=== PATIENT | male | born 1965 | race Hispanic/Latino ===

== ENCOUNTER 2019-01-06 17:13 | Inpatient (IN) | payer MEDICAID, OTHER ==
[2019-01-06] MEDS ORDERED: ROCEPHIN 2,000 MG in NACL 0.9% 50 ML IV STA (17:26)
--- NOTE | 2019-01-06 17:27 | Emergency Department Report ---
ED General Adult HPI - General Chief complaint: Weakness Stated complaint: TORSTEN Time Seen by Provider: 01/06/19 17:17 Source: patient, family, EMS (verbal report received from EMS. EMS documentation not available at time of chart dictation ), RN notes reviewed, old records reviewed Mode of arrival: Stretcher Limitations: Physical Limitation - History of Present Illness Initial comments: This is a 53-year-old gentleman. I have evaluated this patient in the past. His past medical history includes upper GI bleed, variceal bleeding, hepatitis C, possible cirrhosis Also has a known history of alcohol abuse, admission to this hospital for sepsis and pneumonia As per verbal report from EMS, patient is an end-stage liver patient. He's had multiple recent hospitalizations and evaluations at [facility], as per EMS, and has been informed that he is in end-stage liver patient. However, patient is apparently not receptive to this diagnosis. He therefore presents to the ER today with complaint of shortness of breath, weakness, abdominal wall pain, cough, malaise and fatigue. Patient has difficulty describing exacerbating or or relieving factors. The patient is a poor historian at this time. His family indicates that they don't know his goals of care, although his mother believes that she is his current power of workers compensation attorney. -: Gradual Improves with: other Worsens with: other Associated Symptoms: shortness of breath - Related Data Previous Rx's Medication Instructions Recorded Last Taken Type levoFLOXacin [Levaquin TAB] 750 mg PO Q24HR #7 tablet 02/03/16 Unknown Rx Allergies Allergy/AdvReac Type Severity Reaction Status Date / Time No Known Allergies Allergy Verified 01/28/16 21:54 ED Review of Systems ROS: Stated complaint: TORSTEN Other details as noted in HPI Comment: Unobtainable due to pts medical conditions Constitutional: malaise, weakness ENT: congestion Respiratory: shortness of breath Cardiovascular: edema Gastrointestinal: abdominal pain Musculoskeletal: arthralgia, myalgia Skin: denies: lesions Neurological: weakness Psychiatric: anxiety ED Past Medical Hx - Past Medical History Hx Heart Attack/AMI: No Hx Congestive Heart Failure: No Hx Diabetes: No Hx Deep Vein Thrombosis: No Hx Pulmonary Embolism: No Hx Liver Disease: Yes (Hep C) Hx Arthritis: Yes Hx Seizures: No Hx Asthma: No Hx COPD: No Hx Tuberculosis: No - Surgical History Hx Pacemaker: No Hx Internal Defibrillator: No Additional Surgical History: Femoral artery "popped" and cauritize - Social History Smoking Status: Current Some Day Smoker - Medications Home Medications: Home Medications Medication Instructions Recorded Confirmed Last Taken Type levoFLOXacin [Levaquin TAB] 750 mg PO Q24HR #7 tablet 02/03/16 Unknown Rx ED Physical Exam - General Limitations: Physical Limitation General appearance: alert, anxious, in distress - Head Head exam: Present: atraumatic, normocephalic - Eye Eye exam: Present: normal appearance, EOMI. Absent: nystagmus - ENT ENT exam: Present: normal exam, normal orophraynx, mucous membranes moist, normal external ear exam - Neck Neck exam: Present: normal inspection, full ROM. Absent: tenderness, meningismus - Respiratory Respiratory exam: Present: respiratory distress, rhonchi, decreased breath sounds (decreased breath sounds in the right hemithorax) - Cardiovascular Cardiovascular Exam: Present: normal rhythm, tachycardia, normal heart sounds. Absent: systolic murmur, diastolic murmur, rubs, gallop - GI/Abdominal GI/Abdominal exam: Present: soft, distended, tenderness. Absent: guarding, pulsatile mass - Rectal Rectal exam: Present: deferred - Extremities Exam Extremities exam: Present: normal inspection, full ROM, pedal edema, other (2+ pulses noted in the bilateral upper, lower extremities. There is no long bone tenderness. Musculoskeletal compartments are soft. The pelvis is stable.) - Back Exam Back exam: Present: normal inspection. Absent: tenderness, CVA tenderness (R), CVA tenderness (L), paraspinal tenderness, vertebral tenderness - Neurological Exam Neurological exam: Present: alert (the patient is alert to name. The patient follows commands.), other (there is no facial droop. The tongue is midline. Extraocular movements are intact bilaterally. Patient speaking in full complete sentences. Shoulder shrug is intact bilaterally. Hearing is grossly intact bilaterally. Visual acuity intact to finger counting and color perception at a close distance. 5/5 strength 4 extremities. Sensation intact to light touch in 4 extremities.) - Psychiatric Psychiatric exam: Present: anxious - Skin Skin exam: Present: warm ED Course Vital Signs 01/06/19 17:31 Temperature 97.8 F Pulse Rate 131 H Respiratory 28 H Rate Blood Pressure 112/67 Blood Pressure 112/67 [Left] O2 Sat by Pulse 95 Oximetry - Reevaluation(s) Reevaluation #1: 01/06/19 19:13 Differential diagnosis, including but not limited to: End-stage liver disease, cirrhosis, coagulopathy, spontaneous bacterial peritonitis, pneumonia Assessment and plan: 53-year-old gentleman with coagulopathy, end-stage liver disease, cirrhosis, with systemic inflammatory response syndrome, manifested by tachycardia, leukopenia, and lactic acidosis. Overall prognosis is very poor. Attempted to engage patient, mother, in discussion about long-term prognosis and goals of care. The patient is refusing BiPAP at this time, but he is amenable to high flow therapy. At this time, he is a full code. He is also found to be leukopenic. We will start him on the sepsis pathway, initiate broad-spectrum antibiotic therapy, neutropenic precautions, and reverse coagulopathy. Case discussed with critical care physician, Dr. Mirtha Johnson, who also has recommended reversal agents for coagulopathy, and agrees with placement to the stepdown unit. Case presented to the hospital physician, Dr. Edward, who will accept the patient to the medical service. ED Medical Decision Making - Lab Data Result diagrams: 01/06/19 17:32 01/06/19 17:32 Vital Signs 01/06/19 17:31 Temperature 97.8 F Pulse Rate 131 H Respiratory 28 H Rate Blood Pressure 112/67 Blood Pressure 112/67 [Left] O2 Sat by Pulse 95 Oximetry Lab Results 01/06/19 01/06/19 01/06/19 Range/Units 17:32 17:32 17:32 WBC 1.1 L* (4.5-11.0) K/mm3 RBC 2.78 L (3.65-5.03) M/mm3 Hgb 11.2 L (11.8-15.2) gm/dl Hct 34.5 L (35.5-45.6) % MCV 124 H (84-94) fl MCH 40 H (28-32) pg MCHC 33 (32-34) % RDW 18.1 H (13.2-15.2) % Plt Count 77 L (140-440) K/mm3 PT 25.0 H (12.2-14.9) Sec. INR 2.32 H (0.87-1.13) APTT 38.6 H (24.2-36.6) Sec. Thrombin Time 20.7 H (15.1-19.6) Sec. Sodium 135 L (137-145) mmol/L Potassium 3.7 (3.6-5.0) mmol/L Chloride 99.7 (98-107) mmol/L Carbon Dioxide 14 L (22-30) mmol/L Anion Gap 25 mmol/L BUN 12 (9-20) mg/dL Creatinine 0.6 L (0.8-1.5) mg/dL Estimated GFR > 60 ml/min BUN/Creatinine Ratio 20 % Glucose 82 (75-100) mg/dL Lactic Acid (0.7-2.0) mmol/L Calcium 8.3 L (8.4-10.2) mg/dL Magnesium 1.40 L (1.7-2.3) mg/dL Total Bilirubin 4.80 H (0.1-1.2) mg/dL AST 44 H (5-40) units/L ALT 19 (7-56) units/L Alkaline Phosphatase 127 (35-129) units/L Total Creatine Kinase 50 L (55-170) units/L Troponin T < 0.010 (0.00-0.029) ng/mL NT-Pro-B Natriuret Pep 363.9 (0-900) pg/mL Total Protein 7.2 (6.3-8.2) g/dL Albumin 2.6 L (3.9-5) g/dL Albumin/Globulin Ratio 0.6 % Blood Type 01/06/19 01/06/19 Range/Units 17:32 17:32 WBC (4.5-11.0) K/mm3 RBC (3.65-5.03) M/mm3 Hgb (11.8-15.2) gm/dl Hct (35.5-45.6) % MCV (84-94) fl MCH (28-32) pg MCHC (32-34) % RDW (13.2-15.2) % Plt Count (140-440) K/mm3 PT (12.2-14.9) Sec. INR (0.87-1.13) APTT (24.2-36.6) Sec. Thrombin Time (15.1-19.6) Sec. Sodium (137-145) mmol/L Potassium (3.6-5.0) mmol/L Chloride (98-107) mmol/L Carbon Dioxide (22-30) mmol/L Anion Gap mmol/L BUN (9-20) mg/dL Creatinine (0.8-1.5) mg/dL Estimated GFR ml/min BUN/Creatinine Ratio % Glucose (75-100) mg/dL Lactic Acid 8.80 H* (0.7-2.0) mmol/L Calcium (8.4-10.2) mg/dL Magnesium (1.7-2.3) mg/dL Total Bilirubin (0.1-1.2) mg/dL AST (5-40) units/L ALT (7-56) units/L Alkaline Phosphatase (35-129) units/L Total Creatine Kinase (55-170) units/L Troponin T (0.00-0.029) ng/mL NT-Pro-B Natriuret Pep (0-900) pg/mL Total Protein (6.3-8.2) g/dL Albumin (3.9-5) g/dL Albumin/Globulin Ratio % Blood Type O POSITIVE - EKG Data -: EKG Interpreted by [facility] EKG shows normal: sinus rhythm Rate: normal - EKG Data 01/06/19 19:15 This is a sinus tachycardia, 132 bpm, normal axis, QTC prolonged, poor all with percussion, premature atrial contraction, motion artifact, the EKG is abnormal, the EKG is not consistent with ST elevation myocardial infarction. - Radiology Data Radiology results: report reviewed, image reviewed Findings [facility] [address] [place] [address] XRay Report Signed Patient: CASS ROGERS MR#: [id number] : 1965 Acct:[id number] Age/Sex: 53 / M ADM Date: 01/06/19 Loc: ED Attending Dr: Ordering Physician: LILLIAN IRVING MD Date of Service: 01/06/19 Procedure(s): XR chest 1V ap Accession Number(s): [id number] cc: LILLIAN IRVING MD Fluoro Time In Minutes: Chest single view INDICATION: Dyspnea IMPRESSION: Moderate right pleural effusion with patchy airspace consolidation t hroughout the right upper and right lower lung. The left lung is clear. Signer Name: Mino Jacques MD Signed: 01/06/2019 5:58 PM Workstation Name: [id number] Transcribed By: LAKSHMI Dictated By: Mino Jacques MD Electronically Authenticated By: Mino Jacques MD Signed Date/Time: 01/06/19 2952 Critical Care Time: Yes Critical care time in (mins) excluding proc time.: 60 Critical care attestation.: If time is entered above; I have spent that time in minutes in the direct care of this critically ill patient, excluding procedure time. ED Disposition Clinical Impression: End stage liver disease, Coagulopathy, Severe sepsis Pneumonia Qualifiers: Pneumonia type: due to unspecified organism Laterality: right Lung location: unspecified part of lung Qualified Code(s): J18.9 - Pneumonia, unspecified organism Hepatitis C Qualifiers: Viral hepatitis chronicity: unspecified Hepatic coma status: without hepatic coma Qualified Code(s): B19.20 - Unspecified viral hepatitis C without hepatic coma Disposition: OP ADMIT IP TO THIS HOSP Is pt being admited?: Yes Does the pt Need Aspirin: No Condition: Critical Instructions: Bacterial Pneumonia (ED) Referrals: PRIMARY CAREMD [Primary Care Provider] - 3-5 Days
[2019-01-06 17:57] LABS: Hematocrit 34.5 % (35.5-45.6); Hemoglobin 11.2 gm/dl (11.8-15.2); Mean Corpuscular HGB Conc 33 % (32-34); Red Blood Count 2.78 M/mm3 (3.65-5.03); Red Cell Distribution Width 18.1 % (13.2-15.2)
[2019-01-06] MEDS ORDERED: ROCEPHIN/NS 2 GM/100 ML 2 GM/100 ML BAG IV ONE (18:00)
--- NOTE | 2019-01-06 18:02 | XRay Report ---
Chest single view INDICATION: Dyspnea IMPRESSION: Moderate right pleural effusion with patchy airspace consolidation throughout the right u pper and right lower lung. The left lung is clear. Signer Name: Mino Jacques MD Signed: 01/06/2019 5:58 PM Workstation Name: [id number]
[2019-01-06 18:03] LABS: INR 2.32 (0.87-1.13); Partial Thromboplastin Time 38.6 Sec. (24.2-36.6); Thrombin Time 20.7 Sec. (15.1-19.6)
[2019-01-06 18:05] LABS: Mean Corpuscular Volume 124 fl (84-94)
[2019-01-06 18:06] LABS: Platelet Count 77 K/mm3 (140-440)
[2019-01-06 18:21] LABS: Alanine Aminotransferase 19 units/L (7-56); Albumin 2.6 g/dL (3.9-5); BUN/Creatinine Ratio 20; Blood Urea Nitrogen 12 mg/dL (9-20); Calcium 8.3 mg/dL (8.4-10.2); Hemolysis Index 21
[2019-01-06] MEDS ORDERED: NACL 0.9% 1000 ML IV ONE (18:47)
[2019-01-06] MEDS ORDERED: VITAMIN K (ADULT ONLY) 10 MG in NACL 0.9% 50 ML IV ONE (18:51)
[2019-01-06] MEDS ORDERED: NACL 0.9% 500 ML 500 ML IV ONE (18:51)
[2019-01-06 18:55] LABS: Band Neutrophils # (Manual) 0.1 K/mm3; Basophils % (Manual) 0 % (0.0-1.8); Monocytes % (Manual) 0 % (0.0-7.3); Total Cells Counted 50
[2019-01-06] MEDS ORDERED: SUBLIMAZE IV ONE (19:10)
[2019-01-06 19:15] LABS: Crenated RBC Few; Large Platelets 1+; Macrocytosis 2+; Platelet Estimate Appears Decreased
--- NOTE | 2019-01-06 19:52 | History and Physical Report ---
History of Present Illness Chief complaint: I feel weak History of present illness: 53 YO Male with HCV,Cirrhosis, ESLD complicated by Esophageal Varices, Nicotine Dependence presents to ED for evaluation. Pt states that he has experienced shortness of breath over the past 1 day with persistently worsening symptoms ov er the same time frame. Pt also acknowledges weakness and fatigue. EMS notified, and upon arrival the patient found to be in distress and transported to [facility]. Pt seen and evaluated in ED and found to have Neutropenia, Sepsis, Pneumonia, and Acute Hypoxemic Respiratory Failure. Pt declines respiratory support. Pt initiated on sepsis protocol and admitted to [facility]. Critical care team consulted in ED. Prior admission on 01/29/16 reviewed. Pt found to have poor prognosis. Advanced care planning conducted. Pt and family acknowledge understanding care plan. Past History Past Medical History: hepatitis, other (Cirrhosis, Esophageal varices) Past Surgical History: Other (Esophageal banding) Social history: single Family history: no significant family history (reviewed) Medications and Allergies Allergies Allergy/AdvReac Type Severity Reaction Status Date / Time No Known Allergies Allergy Verified 01/28/16 21:54 Home Medications Medication Instructions Recorded Confirmed Last Taken Type levoFLOXacin [Levaquin TAB] 750 mg PO Q24HR #7 tablet 02/03/16 Unknown Rx Review of Systems Constitutional: weakness, malaise, no weight loss, no weight gain, no fever, no chills Cardiovascular: no chest pain, no orthopnea, no palpitations, no rapid/irregular heart beat, no edema Respiratory: no cough, no cough with sputum, no excessive sputum, no hemoptysis Gastrointestinal: no abdominal pain, no nausea, no vomiting, no diarrhea, no constipation, no change in bowel habits Genitourinary Male: no hematuria, no discharge, no urinary frequency, no urinary hesitancy, no nocturia Rectal: no pain, no incontinence, no bleeding Musculoskeletal: no neck stiffness, no neck pain, no low back pain, no shooting leg pain, no redness of joints Integumentary: no rash, no sores, no wounds Neurological: weakness, no transient paralysis, no tingling, no seizures, no s yncope, no tremors Psychiatric: no anxiety, no memory loss, no change in sleep habits, no sleep disturbances, no insomnia, no hypersomnia Endocrine: no cold intolerance, no heat intolerance, no polyphagia, no excessive thirst, no polydipsia Hematologic/Lymphatic: no easy bruising, no easy bleeding, no lymphadenopathy, no lymphedema Allergic/Immunologic: no urticaria, no allergic rhinitis, no wheezing, no persistent infections, no anaphylaxis, no angioedema Exam - Constitutional Vitals: Temp Pulse Resp BP Pulse Ox 97.8 F 133 H 32 H 96/42 96 01/06/19 17:31 01/06/19 19:13 01/06/19 19:13 01/06/19 19:13 01/06/19 19:15 General appearance: Present: mild distress - EENT Eyes: Present: PERRL ENT: hearing intact, clear oral mucosa - Respiratory Respiratory effort: labored, accessory muscle use Respiratory: bilateral: diminished, rhonchi - Cardiovascular Rhythm: other (tachycardia) Heart Sounds: Present: S1 & S2. Absent: rub, click - Extremities Extremities: pulses symmetrical, No edema Peripheral Pulses: within normal limits - Abdominal General gastrointestinal: Present: soft, non-tender, non-distended, normal bowel sounds Male genitourinary: Present: normal - Integumentary Integumentary: Present: clear, warm, dry - Musculoskeletal Musculoskeletal: generalized weakness - Psychiatric Psychiatric: appropriate mood/affect, intact judgment & insight - Neurologic Neurologic: CNII-XII intact, moves all extremities Results - Labs CBC & Chem 7: 01/06/19 17:32 01/07/19 06:08 Labs: Abnormal lab results 01/06/19 01/06/19 01/06/19 Range/Units 17:32 17:32 17:32 WBC 1.1 L* (4.5-11.0) K/mm3 RBC 2.78 L (3.65-5.03) M/mm3 Hgb 11.2 L (11.8-15.2) gm/dl Hct 34.5 L (35.5-45.6) % MCV 124 H (84-94) fl MCH 40 H (28-32) pg RDW 18.1 H (13.2-15.2) % Plt Count 77 L (140-440) K/mm3 Seg Neuts % (Manual) 72.0 H (40.0-70.0) % Lymphocytes % (Manual) 12.0 L (13.4-35.0) % Seg Neutrophils # Man 0.8 L (1.8-7.7) K/mm3 Lymphocytes # (Manual) 0.1 L (1.2-5.4) K/mm3 PT 25.0 H (12.2-14.9) Sec. INR 2.32 H (0.87-1.13) APTT 38.6 H (24.2-36.6) Sec. Thrombin Time 20.7 H (15.1-19.6) Sec. Sodium 135 L (137-145) mmol/L Carbon Dioxide 14 L (22-30) mmol/L Creatinine 0.6 L (0.8-1.5) mg/dL Lactic Acid (0.7-2.0) mmol/L Calcium 8.3 L (8.4-10.2) mg/dL Magnesium 1.40 L (1.7-2.3) mg/dL Total Bilirubin 4.80 H (0.1-1.2) mg/dL AST 44 H (5-40) units/L Total Creatine Kinase 50 L (55-170) units/L Albumin 2.6 L (3.9-5) g/dL 01/06/19 Range/Units 17:32 WBC (4.5-11.0) K/mm3 RBC (3.65-5.03) M/mm3 Hgb (11.8-15.2) gm/dl Hct (35.5-45.6) % MCV (84-94) fl MCH (28-32) pg RDW (13.2-15.2) % Plt Count (140-440) K/mm3 Seg Neuts % (Manual) (40.0-70.0) % Lymphocytes % (Manual) (13.4-35.0) % Seg Neutrophils # Man (1.8-7.7) K/mm3 Lymphocytes # (Manual) (1.2-5.4) K/mm3 PT (12.2-14.9) Sec. INR (0.87-1.13) APTT (24.2-36.6) Sec. Thrombin Time (15.1-19.6) Sec. Sodium (137-145) mmol/L Carbon Dioxide (22-30) mmol/L Creatinine (0.8-1.5) mg/dL Lactic Acid 8.80 H* (0.7-2.0) mmol/L Calcium (8.4-10.2) mg/dL Magnesium (1.7-2.3) mg/dL Total Bilirubin (0.1-1.2) mg/dL AST (5-40) units/L Total Creatine Kinase (55-170) units/L Albumin (3.9-5) g/dL Assessment and Plan - Patient Problems (1) Sepsis Current Visit: No Status: Acute Qualifiers: Acute respiratory failure type: with hypoxia Plan to address problem: Sepsis protocol: Admit to IMCU, CBC, CMP, Supplemental oxygen, pulse oximetry, serial lactic acid, chest x ray, urinalysis, monitor uop q shift, Pt has poor prognosis. Pt and family counseled regarding prognosis. (2) Pneumonia Current Visit: Yes Status: Acute Qualifiers: Lung location: lower lobe of lung Plan to address problem: IV antiboitic therapy, Chest x ray, nebulizer therapy, CBC, CMP, Pulse oximetry, supportive care. (3) End stage liver disease Current Visit: Yes Status: Acute Plan to address problem: Poor prognosis, supportive care, pain control, avoid hepatotoxic agents. Pt and family counseled regarding prognosis and care plan. (4) Acute hypoxemic respiratory failure Current Visit: No Status: Acute Plan to address problem: Supplemental oxygen, nebulizer therapy, pulse oximetry, chest x ray. Pt declined invasive ventilation, as well as NIPPV. Pt and family counseled regarding risks of worsening health status and possible . Pt and family acknowledge understanding of risks. (5) Neutropenia Current Visit: Yes Status: Acute Qualifiers: Neutropenia type: unspecified Qualified Code(s): D70.9 - Neutropenia, unspecified Plan to address problem: Neutropenic precautions, Chest x ray, CBC, CMP, supportive care. (6) Acidosis Current Visit: Yes Status: Acute Plan to address problem: Etiology suspected to be multifactorial: Treat sepsis, serial lactic acid levels, supportive care. (7) DVT prophylaxis Current Visit: Yes Status: Acute Plan to address problem: SCD to BLE while in bed, hold anticoagulation secondary to ESLD and concomitant coagulopathy.
[2019-01-06] MEDS ORDERED: SODIUM CHLORIDE FLUSH SYRINGE 10 ML IV PRN (20:04)
[2019-01-06] MEDS ORDERED: MORPHINE IV PRN ×2 (20:13→20:43)
[2019-01-06] MEDS ORDERED: D50W (25GM) Syringe IV ONE ×2 (20:24→20:26)
[2019-01-06] MEDS ORDERED: ATIVAN ONE (20:49)
[2019-01-06] MEDS: ATIVAN IV PRN (20:52)
[2019-01-06] MEDS ORDERED: PROVENTIL IH ONE ×3 (21:09→21:57)
[2019-01-06] MEDS: SODIUM CHLORIDE FLUSH SYRINGE 10 ML IV SCH (21:50)
[2019-01-06] MEDS ORDERED: D5NS 1,000 ML IV SCH (23:45)
[2019-01-06] MEDS ORDERED: HumuLIN R 100 UNITS in NACL 0.9% 99 ML IV SCH (23:45)
[2019-01-07] MEDS ORDERED: D5W 1,000 ML IV ONE
[2019-01-07] MEDS ORDERED: D50W (25GM) Syringe IV ONE (00:07)
[2019-01-07] MEDS: D50W (25GM) Syringe IV PRN ×4 (00:15→04:44)
[2019-01-07 01:00] LABS: BUN/Creatinine Ratio 17; Blood Urea Nitrogen 15 mg/dL (9-20); Calcium 7.7 mg/dL (8.4-10.2); Hemolysis Index 71
[2019-01-07] MEDS ORDERED: LASIX IV ONE (01:25)
[2019-01-07] MEDS ORDERED: NACL 0.9% 1000 ML 1,000 ML IV ONE (01:26)
[2019-01-07] MEDS ORDERED: NACL 0.9% 1000 ML 1,000 ML ONE ×3 (01:34→12:37)
[2019-01-07] MEDS ORDERED: LASIX ONE (01:34)
[2019-01-07] MEDS ORDERED: PROVENTIL IH ONE ×4 (03:10→21:09)
[2019-01-07] MEDS ORDERED: D10W 1,000 ML IV SCH (04:00)
--- NOTE | 2019-01-07 06:59 | Event Note ---
Date: 01/07/19 Cross-cover Notified by nursing staff of patients labs with Acidosis. Sodium bicarb ordered. GI consult placed also.
[2019-01-07 07:03] LABS: BUN/Creatinine Ratio 14; Blood Urea Nitrogen 17 mg/dL (9-20); Calcium 7.6 mg/dL (8.4-10.2); Hemolysis Index 17
[2019-01-07] MEDS ORDERED: D10W IV SCH (07:30)
[2019-01-07] MEDS ORDERED: SODIUM BICARBONATE IV SCH (07:30)
[2019-01-07] MEDS ORDERED: NACL 0.9% 1000 ML 2,000 ML IV ONE (08:00)
[2019-01-07 08:48] LABS: BUN/Creatinine Ratio 15; Blood Urea Nitrogen 18 mg/dL (9-20); Calcium 7.8 mg/dL (8.4-10.2); Hemolysis Index 107
[2019-01-07] MEDS ORDERED: ATIVAN ONE (09:24)
[2019-01-07] MEDS ORDERED: ATIVAN IV ONE (09:30)
[2019-01-07] MEDS ORDERED: LEVAQUIN 750MG/150ML 750 MG/150 ML BAG IV SCH (10:00)
[2019-01-07] MEDS ORDERED: NACL 0.9% 500 ML 500 ML IV ONE (10:03)
[2019-01-07] MEDS ORDERED: KCL 10MEQ/100ML 10 MEQ/100 ML BAG IV ONE ×2 (10:09→12:27)
[2019-01-07] MEDS: KCL 10MEQ/100ML 10 MEQ/100 ML BAG IV SCH ×2 (10:30→13:10)
[2019-01-07 12:31] LABS: Calcium 7.6 mg/dL (8.4-10.2)
[2019-01-07] MEDS: SODIUM CHLORIDE FLUSH SYRINGE 10 ML IV SCH (13:09)
--- NOTE | 2019-01-07 13:41 | Cat Scan Report ---
CT ABDOMEN AND PELVIS WITH and without CONTRAST HISTORY: ischemic bowel COMPARISON: CT abdomen and pelvis report dated 08/16/2015 TECHNIQUE: Axial CT images were obtained through the abdomen and pelvis after 100 cc of Omnipaque 300 intravenously. Sagittal and coronal reformatted images. All CT scans at this location are performed using CT dose reduction for ALARA by means of automated exposure control. FINDINGS: CT ABDOMEN: Lung Bases: Heart size is normal. There is a large complex loculated pleural effusion at the right vicenta ng base. Compressive atelectasis is present throughout the inferior right lung. The left lung bases g enerally clear. Trace left pleural effusion is noted. Liver: The liver is shrunken and cirrhotic. No evidence for focal liver mass. The portal venous syste m and hepatic veins are patent. Biliary: No significant abnormality. Spleen: Mild splenomegaly measures 14.7 cm. No focal splenic lesion. Pancreas: No significant abnormality. Adrenals: No significant abnormality. Kidneys: A 5 mm calyceal stone is noted near the superior pole the right kidney. A 1 cm cyst is noted at the inferior pole of the left kidney. No evidence for hydronephrosis or perinephric fluid. Lymphatics: No lymphadenopathy. Vasculature: The aorta is normal caliber and widely patent. The celiac axis and SMA are unremarkable. The SANDRA is not confidently identified. There is moderate motion artifact on this exam. Bowel/Peritoneum: There are multiple small bowel loops and most of the colon which demonstrates moder ate circumferential thickening. There is no evidence for pneumatosis or free air. Small ascites is no airam. A debris level is noted within the pelvic ascites which could represent blood products. The appe ndix is not confidently identified. CT PELVIS: : The bladder is decompressed with a Welch catheter. No obvious abnormality. Osseous Structures: Moderate thoracolumbar spondylosis is identified. No evidence for acute fracture or suspicious bony lesion. Additional Findings: None IMPRESSION: There are multiple thickened small bowel loops and colon consistent with a nonspecific enteritis/coli tis. No pneumatosis or free air is identified at this time. Early ischemic bowel cannot be excluded. Cirrhosis and mild splenomegaly. Small ascites. Right renal stone, nonobstructing. Complex, loculated right pleural effusion. Trace left pleural effusion. Signer Name: Tyrone Crooks Jr, MD Signed: 01/07/2019 1:37 PM Workstation Name: [id number]
[2019-01-07 13:45] VITALS: BP 94/50
--- NOTE | 2019-01-07 13:53 | Gastroenterology Consultation ---
History of Present Illness - Reason for Consult Consult date: 01/07/19 cirrhosis Requesting physician: REYNA SANCHES - History of Present Illness Patient is a 53 y/o male who presented to ED yesterday with c/o shortness of breath, weakness, abdominal wall pain, cough, malaise and fatigue. Upon admission, he was found to have coagulopathy, sepsis, pneumonia, acute hypoxemic respiratory failure, neutropenia, and acidosis to which he was admitted and currently being treated (on antibiotics and neutropenic precautions). Patient is previously known to our service. He has a hx of cirrhosis/ESLD and HCV (s/p treatment; PCR 2016 negative) complicated by ascites and esophageal varices to which GI has been consulted. His last EGD was on 05/03/[address] Healy showed grade 2/3 esophageal varices (s/p banding 07/2017) and portal gastropathy, however patient has been lost to follow up since that time. This morning patient was resting on stretcher in ED in distress with tachypnea on high flow oxygen. Noted to be lethargic (given Ativan this am) and unable to provide history. History obtained via chart review (no family at bedside). He has a remote hx of ETOH abuse (unknown if recent use). Upon exam, abdomen firm and mottled. No active signs of GI bleeding. Past History Past Medical History: hepatitis (HCV-s/p treatment), other (Cirrhosis, Esophageal varices) Past Surgical History: Other (Esophageal banding) Social history: single Family history: no significant family history (reviewed) Medications and Allergies Allergies Allergy/AdvReac Type Severity Reaction Status Date / Time No Known Allergies Allergy Verified 01/28/16 21:54 Home Medications Medication Instructions Recorded Confirmed Last Taken Type levoFLOXacin [Levaquin TAB] 750 mg PO Q24HR #7 tablet 02/03/16 Unknown Rx Active Meds: Active Medications Dextrose (D50w (25gm) Syringe) 0 ml IV PRN PRN PRN Reason: Hypoglycemia Last Admin: 01/07/19 04:44 Dose: 10 ml Documented by: Levofloxacin/Dextrose (Levaquin 750mg/150ml) 750 mg in 150 mls @ 100 mls/hr IV Q24HR JULIAN; Protocol Last Admin: 01/07/19 13:28 Dose: 100 mls/hr Documented by: Sodium Bicarbonate 50 meq/ (Dextrose) 1,050 mls @ 75 mls/hr IV DIRECT JULIAN Last Admin: 01/07/19 08:40 Dose: 75 mls/hr Documented by: Lorazepam (Ativan) 1 mg IV Q4H PRN PRN Reason: Agitation Last Admin: 01/06/19 20:52 Dose: 1 mg Documented by: Morphine Sulfate (Morphine) 2 mg IV Q4H PRN PRN Reason: Pain, Moderate (4-6) Sodium Chloride (Sodium Chloride Flush Syringe 10 Ml) 10 ml IV BID [facility] Last Admin: 01/07/19 13:09 Dose: 10 ml Documented by: Sodium Chloride (Sodium Chloride Flush Syringe 10 Ml) 10 ml IV PRN PRN PRN Reason: LINE FLUSH medications reviewed/updated as required Review of Systems - Review of Systems ROS unobtainable: due to mental status Exam - Constitutional Vital Signs: Temp Pulse Resp BP Pulse Ox 98.1 F 122 H 22 94/50 100 01/07/19 07:31 01/07/19 13:44 01/07/19 13:44 01/07/19 13:44 01/07/19 13:44 General appearance: severe distress - Respiratory Respiratory effort: labored Respiratory: bilateral: diminished - Cardiovascular Rhythm: other (tachycardia) - Gastrointestinal General gastrointestinal: Present: distended (slightly), other (firm, mottled) - Integumentary Integumentary: Present: warm, dry - Neurologic Neurological: other (lethargic) - Labs CBC & Chem 7: 01/06/19 17:32 01/07/19 11:49 Lab Results: Laboratory Results - last 24 hr 01/06/19 01/06/19 01/06/19 17:32 17:32 17:32 WBC 1.1 L* RBC 2.78 L Hgb 11.2 L Hct 34.5 L MCV 124 H MCH 40 H MCHC 33 RDW 18.1 H Plt Count 77 L Add Manual Diff Complete Total Counted 50 Seg Neuts % (Manual) 72.0 H Band Neutrophils % 10.0 Lymphocytes % (Manual) 12.0 L Reactive Lymphs % (Man) 0 Monocytes % (Manual) 0 Eosinophils % (Manual) 2.0 Basophils % (Manual) 0 Metamyelocytes % 2.0 Myelocytes % 2.0 Promyelocytes % 0 Blast Cells % 0 Nucleated RBC % Not Reportable Seg Neutrophils # Man 0.8 L Band Neutrophils # 0.1 Lymphocytes # (Manual) 0.1 L Abs React Lymphs (Man) 0.0 Monocytes # (Manual) 0.0 Eosinophils # (Manual) 0.0 Basophils # (Manual) 0.0 Metamyelocytes # 0.0 Myelocytes # 0.0 Promyelocytes # 0.0 Blast Cells # 0.0 WBC Morphology Not Reportable Hypersegmented Neuts Not Reportable Hyposegmented Neuts Not Reportable Hypogranular Neuts Not Reportable Smudge Cells Not Reportable Toxic Granulation Not Reportable Toxic Vacuolation Not Reportable Dohle Bodies Not Reportable Pelger-Huet Anomaly Not Reportable Jabier Rods Not Reportable Platelet Estimate Appears decreased Clumped Platelets Not Reportable Plt Clumps, EDTA Not Reportable Large Platelets 1+ Giant Platelets Not Reportable Platelet Satelliting Not Reportable Plt Morphology Comment Not Reportable RBC Morphology Not Reportable Dimorphic RBCs Not Reportable Polychromasia Not Reportable Hypochromasia Not Reportable Poikilocytosis Not Reportable Anisocytosis Not Reportable Microcytosis Not Reportable Macrocytosis 2+ Spherocytes Not Reportable Pappenheimer Bodies Not Reportable Sickle Cells Not Reportable Target Cells Not Reportable Tear Drop Cells Not Reportable Ovalocytes Not Reportable Helmet Cells Not Reportable Fritz-Devola Bodies Not Reportable [place] Rings Not Reportable [place] Cells Not Reportable Bite Cells Not Reportable Crenated Cell Few Elliptocytes Not Reportable Acanthocytes (Spur) Not Reportable Rouleaux Not Reportable Hemoglobin C Crystals Not Reportable Schistocytes Not Reportable Malaria parasites Not Reportable Dharmesh Bodies Not Reportable Hem Pathologist Commnt No PT 25.0 H INR 2.32 H APTT 38.6 H Thrombin Time 20.7 H POC ABG pH POC ABG pO2 POC ABG HCO3 POC ABG Total CO2 POC ABG O2 Sat POC ABG Base Excess FiO2 Sodium 135 L Potassium 3.7 Chloride 99.7 Carbon Dioxide 14 L Anion Gap 25 BUN 12 Creatinine 0.6 L Estimated GFR > 60 BUN/Creatinine Ratio 20 Glucose 82 POC Glucose Lactic Acid Calcium 8.3 L Phosphorus Magnesium 1.40 L Total Bilirubin 4.80 H AST 44 H ALT 19 Alkaline Phosphatase 127 Ammonia Total Creatine Kinase 50 L Troponin T < 0.010 NT-Pro-B Natriuret Pep 363.9 Total Protein 7.2 Albumin 2.6 L Albumin/Globulin Ratio 0.6 Blood Type Antibody Screen 01/06/19 01/06/19 01/06/19 17:32 17:32 19:57 WBC RBC Hgb Hct MCV MCH MCHC RDW Plt Count Add Manual Diff Total Counted Seg Neuts % (Manual) Band Neutrophils % Lymphocytes % (Manual) Reactive Lymphs % (Man) Monocytes % (Manual) Eosinophils % (Manual) Basophils % (Manual) Metamyelocytes % Myelocytes % Promyelocytes % Blast Cells % Nucleated RBC % Seg Neutrophils # Man Band Neutrophils # Lymphocytes # (Manual) Abs React Lymphs (Man) Monocytes # (Manual) Eosinophils # (Manual) Basophils # (Manual) Metamyelocytes # Myelocytes # Promyelocytes # Blast Cells # WBC Morphology Hypersegmented Neuts Hyposegmented Neuts Hypogranular Neuts Smudge Cells Toxic Granulation Toxic Vacuolation Dohle Bodies Pelger-Huet Anomaly Jabier Rods Platelet Estimate Clumped Platelets Plt Clumps, EDTA Large Platelets Giant Platelets Platelet Satelliting Plt Morphology Comment RBC Morphology Dimorphic RBCs Polychromasia Hypochromasia Poikilocytosis Anisocytosis Microcytosis Macrocytosis Spherocytes Pappenheimer Bodies Sickle Cells Target Cells Tear Drop Cells Ovalocytes Helmet Cells Fritz-Devola Bodies [place] Rings [place] Cells Bite Cells Crenated Cell Elliptocytes Acanthocytes (Spur) Rouleaux Hemoglobin C Crystals Schistocytes Malaria parasites Dharmesh Bodies Hem Pathologist Commnt PT INR APTT Thrombin Time POC ABG pH POC ABG pO2 POC ABG HCO3 POC ABG Total CO2 POC ABG O2 Sat POC ABG Base Excess FiO2 Sodium Potassium Chloride Carbon Dioxide Anion Gap BUN Creatinine Estimated GFR BUN/Creatinine Ratio Glucose POC Glucose Lactic Acid 8.80 H* Calcium Phosphorus Magnesium Total Bilirubin AST ALT Alkaline Phosphatase Ammonia 73.0 H Total Creatine Kinase Troponin T NT-Pro-B Natriuret Pep Total Protein Albumin Albumin/Globulin Ratio Blood Type O POSITIVE Antibody Screen Negative 01/06/19 01/06/19 01/06/19 20:26 20:59 23:13 WBC RBC Hgb Hct MCV MCH MCHC RDW Plt Count Add Manual Diff Total Counted Seg Neuts % (Manual) Band Neutrophils % Lymphocytes % (Manual) Reactive Lymphs % (Man) Monocytes % (Manual) Eosinophils % (Manual) Basophils % (Manual) Metamyelocytes % Myelocytes % Promyelocytes % Blast Cells % Nucleated RBC % Seg Neutrophils # Man Band Neutrophils # Lymphocytes # (Manual) Abs React Lymphs (Man) Monocytes # (Manual) Eosinophils # (Manual) Basophils # (Manual) Metamyelocytes # Myelocytes # Promyelocytes # Blast Cells # WBC Morphology Hypersegmented Neuts Hyposegmented Neuts Hypogranular Neuts Smudge Cells Toxic Granulation Toxic Vacuolation Dohle Bodies Pelger-Huet Anomaly Jabier Rods Platelet Estimate Clumped Platelets Plt Clumps, EDTA Large Platelets Giant Platelets Platelet Satelliting Plt Morphology Comment RBC Morphology Dimorphic RBCs Polychromasia Hypochromasia Poikilocytosis Anisocytosis Microcytosis Macrocytosis Spherocytes Pappenheimer Bodies Sickle Cells Target Cells Tear Drop Cells Ovalocytes Helmet Cells Fritz-Devola Bodies [place] Rings Oli Cells Bite Cells Crenated Cell Elliptocytes Acanthocytes (Spur) Rouleaux Hemoglobin C Crystals Schistocytes Malaria parasites Dharmesh Bodies Hem Pathologist Commnt PT INR APTT Thrombin Time POC ABG pH POC ABG pO2 POC ABG HCO3 POC ABG Total CO2 POC ABG O2 Sat POC ABG Base Excess FiO2 Sodium Potassium Chloride Carbon Dioxide Anion Gap BUN Creatinine Estimated GFR BUN/Creatinine Ratio Glucose POC Glucose 42 L 135 H 60 L Lactic Acid Calcium Phosphorus Magnesium Total Bilirubin AST ALT Alkaline Phosphatase Ammonia Total Creatine Kinase Troponin T NT-Pro-B Natriuret Pep Total Protein Albumin Albumin/Globulin Ratio Blood Type Antibody Screen 01/07/19 01/07/19 01/07/19 00:12 00:12 00:12 WBC RBC Hgb Hct MCV MCH MCHC RDW Plt Count Add Manual Diff Total Counted Seg Neuts % (Manual) Band Neutrophils % Lymphocytes % (Manual) Reactive Lymphs % (Man) Monocytes % (Manual) Eosinophils % (Manual) Basophils % (Manual) Metamyelocytes % Myelocytes % Promyelocytes % Blast Cells % Nucleated RBC % Seg Neutrophils # Man Band Neutrophils # Lymphocytes # (Manual) Abs React Lymphs (Man) Monocytes # (Manual) Eosinophils # (Manual) Basophils # (Manual) Metamyelocytes # Myelocytes # Promyelocytes # Blast Cells # WBC Morphology Hypersegmented Neuts Hyposegmented Neuts Hypogranular Neuts Smudge Cells Toxic Granulation Toxic Vacuolation Dohle Bodies Pelger-Huet Anomaly Jabier Rods Platelet Estimate Clumped Platelets Plt Clumps, EDTA Large Platelets Giant Platelets Platelet Satelliting Plt Morphology Comment RBC Morphology Dimorphic RBCs Polychromasia Hypochromasia Poikilocytosis Anisocytosis Microcytosis Macrocytosis Spherocytes Pappenheimer Bodies Sickle Cells Target Cells Tear Drop Cells Ovalocytes Helmet Cells Fritz-Devola Bodies [place] Rings Oli Cells Bite Cells Crenated Cell Elliptocytes Acanthocytes (Spur) Rouleaux Hemoglobin C Crystals Schistocytes Malaria parasites Dharmesh Bodies Hem Pathologist Commnt PT INR APTT Thrombin Time POC ABG pH POC ABG pO2 POC ABG HCO3 POC ABG Total CO2 POC ABG O2 Sat POC ABG Base Excess FiO2 Sodium 136 L Potassium 3.7 Chloride 101.2 Carbon Dioxide 10 L Anion Gap 29 BUN 15 Creatinine 0.9 Estimated GFR > 60 BUN/Creatinine Ratio 17 Glucose 66 L POC Glucose Lactic Acid 12.60 H* Calcium 7.7 L Phosphorus 4.90 H Magnesium 1.30 L Total Bilirubin AST ALT Alkaline Phosphatase Ammonia Total Creatine Kinase Troponin T NT-Pro-B Natriuret Pep Total Protein Albumin Albumin/Globulin Ratio Blood Type Antibody Screen 01/07/19 01/07/19 01/07/19 01:42 03:03 04:02 WBC RBC Hgb Hct MCV MCH MCHC RDW Plt Count Add Manual Diff Total Counted Seg Neuts % (Manual) Band Neutrophils % Lymphocytes % (Manual) Reactive Lymphs % (Man) Monocytes % (Manual) Eosinophils % (Manual) Basophils % (Manual) Metamyelocytes % Myelocytes % Promyelocytes % Blast Cells % Nucleated RBC % Seg Neutrophils # Man Band Neutrophils # Lymphocytes # (Manual) Abs React Lymphs (Man) Monocytes # (Manual) Eosinophils # (Manual) Basophils # (Manual) Metamyelocytes # Myelocytes # Promyelocytes # Blast Cells # WBC Morphology Hypersegmented Neuts Hyposegmented Neuts Hypogranular Neuts Smudge Cells Toxic Granulation Toxic Vacuolation Dohle Bodies Pelger-Huet Anomaly Jabier Rods Platelet Estimate Clumped Platelets Plt Clumps, EDTA Large Platelets Giant Platelets Platelet Satelliting Plt Morphology Comment RBC Morphology Dimorphic RBCs Polychromasia Hypochromasia Poikilocytosis Anisocytosis Microcytosis Macrocytosis Spherocytes Pappenheimer Bodies Sickle Cells Target Cells Tear Drop Cells Ovalocytes Helmet Cells Fritz-Devola Bodies [place] Rings Oli Cells Bite Cells Crenated Cell Elliptocytes Acanthocytes (Spur) Rouleaux Hemoglobin C Crystals Schistocytes Malaria parasites Dharmesh Bodies Hem Pathologist Commnt PT INR APTT Thrombin Time POC ABG pH POC ABG pO2 POC ABG HCO3 POC ABG Total CO2 POC ABG O2 Sat POC ABG Base Excess FiO2 Sodium Potassium Chloride Carbon Dioxide Anion Gap BUN Creatinine Estimated GFR BUN/Creatinine Ratio Glucose POC Glucose 65 L 65 L 95 Lactic Acid Calcium Phosphorus Magnesium Total Bilirubin AST ALT Alkaline Phosphatase Ammonia Total Creatine Kinase Troponin T NT-Pro-B Natriuret Pep Total Protein Albumin Albumin/Globulin Ratio Blood Type Antibody Screen 01/07/19 01/07/19 01/07/19 04:50 06:08 06:08 WBC RBC Hgb Hct MCV MCH MCHC RDW Plt Count Add Manual Diff Total Counted Seg Neuts % (Manual) Band Neutrophils % Lymphocytes % (Manual) Reactive Lymphs % (Man) Monocytes % (Manual) Eosinophils % (Manual) Basophils % (Manual) Metamyelocytes % Myelocytes % Promyelocytes % Blast Cells % Nucleated RBC % Seg Neutrophils # Man Band Neutrophils # Lymphocytes # (Manual) Abs React Lymphs (Man) Monocytes # (Manual) Eosinophils # (Manual) Basophils # (Manual) Metamyelocytes # Myelocytes # Promyelocytes # Blast Cells # WBC Morphology Hypersegmented Neuts Hyposegmented Neuts Hypogranular Neuts Smudge Cells Toxic Granulation Toxic Vacuolation Dohle Bodies Pelger-Huet Anomaly Jabier Rods Platelet Estimate Clumped Platelets Plt Clumps, EDTA Large Platelets Giant Platelets Platelet Satelliting Plt Morphology Comment RBC Morphology Dimorphic RBCs Polychromasia Hypochromasia Poikilocytosis Anisocytosis Microcytosis Macrocytosis Spherocytes Pappenheimer Bodies Sickle Cells Target Cells Tear Drop Cells Ovalocytes Helmet Cells Fritz-Devola Bodies [place] Rings Oli Cells Bite Cells Crenated Cell Elliptocytes Acanthocytes (Spur) Rouleaux Hemoglobin C Crystals Schistocytes Malaria parasites Dharmesh Bodies Hem Pathologist Commnt PT INR APTT Thrombin Time POC ABG pH POC ABG pO2 POC ABG HCO3 POC ABG Total CO2 POC ABG O2 Sat POC ABG Base Excess FiO2 Sodium 138 Potassium 3.4 L Chloride 104.2 Carbon Dioxide 11 L Anion Gap 26 BUN 17 Creatinine 1.2 Estimated GFR > 60 BUN/Creatinine Ratio 14 Glucose 99 POC Glucose 75 Lactic Acid 14.40 H* Calcium 7.6 L Phosphorus Magnesium Total Bilirubin AST ALT Alkaline Phosphatase Ammonia Total Creatine Kinase Troponin T NT-Pro-B Natriuret Pep Total Protein Albumin Albumin/Globulin Ratio Blood Type Antibody Screen 01/07/19 01/07/19 01/07/19 06:16 06:56 08:16 WBC RBC Hgb Hct MCV MCH MCHC RDW Plt Count Add Manual Diff Total Counted Seg Neuts % (Manual) Band Neutrophils % Lymphocytes % (Manual) Reactive Lymphs % (Man) Monocytes % (Manual) Eosinophils % (Manual) Basophils % (Manual) Metamyelocytes % Myelocytes % Promyelocytes % Blast Cells % Nucleated RBC % Seg Neutrophils # Man Band Neutrophils # Lymphocytes # (Manual) Abs React Lymphs (Man) Monocytes # (Manual) Eosinophils # (Manual) Basophils # (Manual) Metamyelocytes # Myelocytes # Promyelocytes # Blast Cells # WBC Morphology Hypersegmented Neuts Hyposegmented Neuts Hypogranular Neuts Smudge Cells Toxic Granulation Toxic Vacuolation Dohle Bodies Pelger-Huet Anomaly Jabier Rods Platelet Estimate Clumped Platelets Plt Clumps, EDTA Large Platelets Giant Platelets Platelet Satelliting Plt Morphology Comment RBC Morphology Dimorphic RBCs Polychromasia Hypochromasia Poikilocytosis Anisocytosis Microcytosis Macrocytosis Spherocytes Pappenheimer Bodies Sickle Cells Target Cells Tear Drop Cells Ovalocytes Helmet Cells Fritz-Devola Bodies [place] Rings Oli Cells Bite Cells Crenated Cell Elliptocytes Acanthocytes (Spur) Rouleaux Hemoglobin C Crystals Schistocytes Malaria parasites Dharmesh Bodies Hem Pathologist Commnt PT INR APTT Thrombin Time POC ABG pH 7.109 L POC ABG pO2 71 L POC ABG HCO3 8.0 POC ABG Total CO2 9 POC ABG O2 Sat 88 POC ABG Base Excess -21 FiO2 60 Sodium 137 Potassium 4.0 Chloride 102.2 Carbon Dioxide 10 L Anion Gap 29 BUN 18 Creatinine 1.2 Estimated GFR > 60 BUN/Creatinine Ratio 15 Glucose 94 POC Glucose 108 H Lactic Acid Calcium 7.8 L Phosphorus Magnesium Total Bilirubin AST ALT Alkaline Phosphatase Ammonia Total Creatine Kinase Troponin T NT-Pro-B Natriuret Pep Total Protein Albumin Albumin/Globulin Ratio Blood Type Antibody Screen 01/07/19 01/07/19 01/07/19 08:16 08:28 09:58 WBC RBC Hgb Hct MCV MCH MCHC RDW Plt Count Add Manual Diff Total Counted Seg Neuts % (Manual) Band Neutrophils % Lymphocytes % (Manual) Reactive Lymphs % (Man) Monocytes % (Manual) Eosinophils % (Manual) Basophils % (Manual) Metamyelocytes % Myelocytes % Promyelocytes % Blast Cells % Nucleated RBC % Seg Neutrophils # Man Band Neutrophils # Lymphocytes # (Manual) Abs React Lymphs (Man) Monocytes # (Manual) Eosinophils # (Manual) Basophils # (Manual) Metamyelocytes # Myelocytes # Promyelocytes # Blast Cells # WBC Morphology Hypersegmented Neuts Hyposegmented Neuts Hypogranular Neuts Smudge Cells Toxic Granulation Toxic Vacuolation Dohle Bodies Pelger-Huet Anomaly Jabier Rods Platelet Estimate Clumped Platelets Plt Clumps, EDTA Large Platelets Giant Platelets Platelet Satelliting Plt Morphology Comment RBC Morphology Dimorphic RBCs Polychromasia Hypochromasia Poikilocytosis Anisocytosis Microcytosis Macrocytosis Spherocytes Pappenheimer Bodies Sickle Cells Target Cells Tear Drop Cells Ovalocytes Helmet Cells Fritz-Devola Bodies [place] Rings [place] Cells Bite Cells Crenated Cell Elliptocytes Acanthocytes (Spur) Rouleaux Hemoglobin C Crystals Schistocytes Malaria parasites Dharmesh Bodies Hem Pathologist Commnt PT INR APTT Thrombin Time POC ABG pH POC ABG pO2 POC ABG HCO3 POC ABG Total CO2 POC ABG O2 Sat POC ABG Base Excess FiO2 Sodium Potassium Chloride Carbon Dioxide Anion Gap BUN Creatinine Estimated GFR BUN/Creatinine Ratio Glucose POC Glucose 101 Lactic Acid 14.60 H* 17.00 H* Calcium Phosphorus Magnesium Total Bilirubin AST ALT Alkaline Phosphatase Ammonia Total Creatine Kinase Troponin T NT-Pro-B Natriuret Pep Total Protein Albumin Albumin/Globulin Ratio Blood Type Antibody Screen 01/07/19 01/07/19 01/07/19 10:46 11:12 11:49 WBC RBC Hgb Hct MCV MCH MCHC RDW Plt Count Add Manual Diff Total Counted Seg Neuts % (Manual) Band Neutrophils % Lymphocytes % (Manual) Reactive Lymphs % (Man) Monocytes % (Manual) Eosinophils % (Manual) Basophils % (Manual) Metamyelocytes % Myelocytes % Promyelocytes % Blast Cells % Nucleated RBC % Seg Neutrophils # Man Band Neutrophils # Lymphocytes # (Manual) Abs React Lymphs (Man) Monocytes # (Manual) Eosinophils # (Manual) Basophils # (Manual) Metamyelocytes # Myelocytes # Promyelocytes # Blast Cells # WBC Morphology Hypersegmented Neuts Hyposegmented Neuts Hypogranular Neuts Smudge Cells Toxic Granulation Toxic Vacuolation Dohle Bodies Pelger-Huet Anomaly Jabier Rods Platelet Estimate Clumped Platelets Plt Clumps, EDTA Large Platelets Giant Platelets Platelet Satelliting Plt Morphology Comment RBC Morphology Dimorphic RBCs Polychromasia Hypochromasia Poikilocytosis Anisocytosis Microcytosis Macrocytosis Spherocytes Pappenheimer Bodies Sickle Cells Target Cells Tear Drop Cells Ovalocytes Helmet Cells Fritz-Devola Bodies [place] Rings Oli Cells Bite Cells Crenated Cell Elliptocytes Acanthocytes (Spur) Rouleaux Hemoglobin C Crystals Schistocytes Malaria parasites Dharmesh Bodies Hem Pathologist Commnt PT INR APTT Thrombin Time POC ABG pH POC ABG pO2 POC ABG HCO3 POC ABG Total CO2 POC ABG O2 Sat POC ABG Base Excess FiO2 Sodium 139 Potassium 3.6 Chloride 102.5 Carbon Dioxide 7 L* Anion Gap 32 BUN 20 Creatinine 1.6 H Estimated GFR 45 BUN/Creatinine Ratio 13 Glucose 124 H POC Glucose 45 L 148 H Lactic Acid Calcium 7.6 L Phosphorus Magnesium Total Bilirubin AST ALT Alkaline Phosphatase Ammonia Total Creatine Kinase Troponin T NT-Pro-B Natriuret Pep Total Protein Albumin Albumin/Globulin Ratio Blood Type Antibody Screen 01/07/19 11:49 WBC RBC Hgb Hct MCV MCH MCHC RDW Plt Count Add Manual Diff Total Counted Seg Neuts % (Manual) Band Neutrophils % Lymphocytes % (Manual) Reactive Lymphs % (Man) Monocytes % (Manual) Eosinophils % (Manual) Basophils % (Manual) Metamyelocytes % Myelocytes % Promyelocytes % Blast Cells % Nucleated RBC % Seg Neutrophils # Man Band Neutrophils # Lymphocytes # (Manual) Abs React Lymphs (Man) Monocytes # (Manual) Eosinophils # (Manual) Basophils # (Manual) Metamyelocytes # Myelocytes # Promyelocytes # Blast Cells # WBC Morphology Hypersegmented Neuts Hyposegmented Neuts Hypogranular Neuts Smudge Cells Toxic Granulation Toxic Vacuolation Dohle Bodies Pelger-Huet Anomaly Jabier Rods Platelet Estimate Clumped Platelets Plt Clumps, EDTA Large Platelets Giant Platelets Platelet Satelliting Plt Morphology Comment RBC Morphology Dimorphic RBCs Polychromasia Hypochromasia Poikilocytosis Anisocytosis Microcytosis Macrocytosis Spherocytes Pappenheimer Bodies Sickle Cells Target Cells Tear Drop Cells Ovalocytes Helmet Cells Fritz-Devola Bodies [place] Rings [place] Cells Bite Cells Crenated Cell Elliptocytes Acanthocytes (Spur) Rouleaux Hemoglobin C Crystals Schistocytes Malaria parasites Dharmesh Bodies Hem Pathologist Commnt PT INR APTT Thrombin Time POC ABG pH POC ABG pO2 POC ABG HCO3 POC ABG Total CO2 POC ABG O2 Sat POC ABG Base Excess FiO2 Sodium Potassium Chloride Carbon Dioxide Anion Gap BUN Creatinine Estimated GFR BUN/Creatinine Ratio Glucose POC Glucose Lactic Acid 15.40 H* Calcium Phosphorus Magnesium Total Bilirubin AST ALT Alkaline Phosphatase Ammonia Total Creatine Kinase Troponin T NT-Pro-B Natriuret Pep Total Protein Albumin Albumin/Globulin Ratio Blood Type Antibody Screen Assessment and Plan 1.cirrhosis/ESLD 2.sepsis 3.pneumonia 4.acute hyoxemic respiratory failure (pleural effusion on chest x-ray; thoracentesis pending once INR corrected) 5.neutropenia 6.acidosis -afebrile -WBC 1.1 -H/H 11.2/34.5-no active signs of bleeding -plt 77, INR 2.32 -LFTs-T.joe 4.80, AST 44, ALT 19, alk phos 127 -lactic acid 15.40-trending up -patient with hx of cirrhosis 2/2 hepatitis C (s/p treatement) and ETOH complicated by ascites and varices -currently patient is in respiratory distress on high flow oxygen pending Bipap with noted tachypnea and tachycardia. Upon exam, abdomen only slightly distended but noted to be firm and mottled. -exam findings discussed with hospitalist (Dr. Sanches) with abd CT ordered and surgical consult placed given concern for ischemic bowel -Keep NPO for now -avoid hepatotoxic agents -continue to trend labs and conservative management of cirrhosis -further recommendations to follow pending above results
[2019-01-07] MEDS ORDERED: LEVAQUIN 750MG/150ML 750 MG/150 ML BAG IV ONE (14:06)
[2019-01-07] MEDS ORDERED: NACL 0.9% 500 ML 500 ML ONE (14:06)
[2019-01-07] MEDS: ATIVAN IV PRN (14:12)
[2019-01-07] MEDS ORDERED: LEVOPHED DRIP 4 MG/NS 250 ML 4 MG/250 ML BAG IV ONE (14:14)
[2019-01-07] MEDS ORDERED: LEVOPHED DRIP 4 MG/NS 250 ML 4 MG/250 ML BAG IV SCH (14:30)
--- NOTE | 2019-01-07 15:39 | Progress Note ---
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 Pt states that he has experienced shortness of breath over the past 1 day with persistently worsening symptoms over the same time frame. Pt also acknowledges weakness and fatigue. EMS notified, and upon arrival the patient found to be in distress and transported to [facility]. Pt seen and evaluated in ED and found to have Neutropenia, Sepsis, Pneumonia, and Acute Hypoxemic Respiratory Failure. Pt declines respiratory support. Pt initiated on sepsis protocol and admitted to IM. Critical care team consulted in ED. Prior admission on 01/29/16 reviewed. Pt found to have poor prognosis. Advanced care planning conducted. Pt and family acknowledge understanding care plan. Septic shock Severe Sepsis Hepatic failure/ESLD Hepatic Encephalopathy SBP presumed Possible underlying Pneumonia Nitropenia Severe Metabolic acidosis Acute Respiratory failure multiorgan failure Coagulopathy inr >2 YANI on CKD Right sided pleural effusion Ascites ETOH induced liver failure Thrombocytopenia PLAN * Continue supportive care * Upgrade to ICU status, Consult Pulmonary * Consult ID secondary to suspicion for SBP * Consult Surgery, for potential ischemic bowel * Consult GI * Start on Bicarb Drip * Aggressive fluid resuciation * Give vitamin K and FFP for coagulopathy reversal * Continue Empiric Antibiotics * dvt/gi PROPHY The high probability of a clinically significant, sudden or life threatening d eterioration of the [GI, Pulmonary] system(s) required my full and direct attention, intervention and personal management. The aggregate critical care time was [35] minutes. This time is in addition to time spent performing reported procedures but includes the following: [x] Data Review and interpretation [x] Patient assessment and monitoring of vital signs [x] Documentation [x] Medication orders and management History Interval history: Patient seen and examined, altered Sensorium, On BIPAP, not following any commands, Per nursing staff patient moans and groans and was complaining earlier of inability to breath Hospitalist Physical - Physical exam Narrative exam: Constitutional: Disoriented, with biPAP on. Not following any commands, moderate distress Head, Eyes, Ears, Nose: Normocephalic, atraumatic. External ears, nose normal, non icterus, PERRLA Neck: Supple, no meningeal signs Cardiovascular: S1, S2, tachy, Respiratory: good air entry with Bipap, clear to auscultation bilaterally GI: Soft, mildly tender; Distended, bowel sounds normal. No peritoneal signs. Musculoskeletal: No pedal edema, no cyanosis or claudication. Skin: No rash or abscess Hem/Lymphatic: No palpable cervical or supraclavicular nodes. No lymphangitis Psych: Disoriented Neurological: Awake, disoriented, spontaneously moving all limbs. - Constitutional Vitals: Temp Pulse Resp BP Pulse Ox 98.1 F 122 H 22 94/50 100 01/07/19 07:31 01/07/19 13:44 01/07/19 13:44 01/07/19 13:44 01/07/19 13:44 General appearance: Present: mild distress Results - Labs CBC & Chem 7: 01/06/19 17:32 01/07/19 15:10 Labs: Laboratory Last Values WBC 1.1 K/mm3 (4.5-11.0) L* 01/06/19 17:32 RBC 2.78 M/mm3 (3.65-5.03) L 01/06/19 17:32 Hgb 11.2 gm/dl (11.8-15.2) L 01/06/19 17:32 Hct 34.5 % (35.5-45.6) L 01/06/19 17:32 MCV 124 fl (84-94) H 01/06/19 17:32 MCH 40 pg (28-32) H 01/06/19 17:32 MCHC 33 % (32-34) 01/06/19 17:32 RDW 18.1 % (13.2-15.2) H 01/06/19 17:32 Plt Count 77 K/mm3 (140-440) L 01/06/19 17:32 Add Manual Diff Complete 01/06/19 17:32 Total Counted 50 01/06/19 17:32 Seg Neuts % (Manual) 72.0 % (40.0-70.0) H 01/06/19 17:32 10.0 % 01/06/19 17:32 12.0 % (13.4-35.0) L 01/06/19 17:32 Reactive Lymphs % (Man) 0 % 01/06/19 17:32 0 % (0.0-7.3) 01/06/19 17:32 2.0 % (0.0-4.3) 01/06/19 17:32 0 % (0.0-1.8) 01/06/19 17:32 2.0 % 01/06/19 17:32 2.0 % 01/06/19 17:32 0 % 01/06/19 17:32 0 % 01/06/19 17:32 Nucleated RBC % Not Reportable 01/06/19 17:32 Seg Neutrophils # Man 0.8 K/mm3 (1.8-7.7) L 01/06/19 17:32 Band Neutrophils # 0.1 K/mm3 01/06/19 17:32 0.1 K/mm3 (1.2-5.4) L 01/06/19 17:32 Abs React Lymphs (Man) 0.0 K/mm3 01/06/19 17:32 0.0 K/mm3 (0.0-0.8) 01/06/19 17:32 0.0 K/mm3 (0.0-0.4) 01/06/19 17:32 0.0 K/mm3 (0.0-0.1) 01/06/19 17:32 0.0 K/mm3 01/06/19 17:32 0.0 K/mm3 01/06/19 17:32 0.0 K/mm3 01/06/19 17:32 Blast Cells # 0.0 K/mm3 01/06/19 17:32 WBC Morphology Not Reportable 01/06/19 17:32 Hypersegmented Neuts Not Reportable 01/06/19 17:32 Hyposegmented Neuts Not Reportable 01/06/19 17:32 Hypogranular Neuts Not Reportable 01/06/19 17:32 Not Reportable 01/06/19 17:32 Not Reportable 01/06/19 17:32 Not Reportable 01/06/19 17:32 Not Reportable 01/06/19 17:32 Not Reportable 01/06/19 17:32 Not Reportable 01/06/19 17:32 Appears decreased 01/06/19 17:32 Not Reportable 01/06/19 17:32 Plt Clumps, EDTA Not Reportable 01/06/19 17:32 1+ 01/06/19 17:32 Not Reportable 01/06/19 17:32 Not Reportable 01/06/19 17:32 Plt Morphology Comment Not Reportable 01/06/19 17:32 RBC Morphology Not Reportable 01/06/19 17:32 Dimorphic RBCs Not Reportable 01/06/19 17:32 Not Reportable 01/06/19 17:32 Not Reportable 01/06/19 17:32 Not Reportable 01/06/19 17:32 Not Reportable 01/06/19 17:32 Not Reportable 01/06/19 17:32 2+ 01/06/19 17:32 Not Reportable 01/06/19 17:32 Not Reportable 01/06/19 17:32 Not Reportable 01/06/19 17:32 Not Reportable 01/06/19 17:32 Not Reportable 01/06/19 17:32 Not Reportable 01/06/19 17:32 Not Reportable 01/06/19 17:32 Not Reportable 01/06/19 17:32 Not Reportable 01/06/19 17:32 Not Reportable 01/06/19 17:32 Not Reportable 01/06/19 17:32 Few 01/06/19 17:32 Not Reportable 01/06/19 17:32 Acanthocytes (Spur) Not Reportable 01/06/19 17:32 Rouleaux Not Reportable 01/06/19 17:32 Not Reportable 01/06/19 17:32 Not Reportable 01/06/19 17:32 Not Reportable 01/06/19 17:32 Not Reportable 01/06/19 17:32 Hem Pathologist Commnt No 01/06/19 17:32 PT 25.0 Sec. (12.2-14.9) H 01/06/19 17:32 INR 2.32 (0.87-1.13) H 01/06/19 17:32 APTT 38.6 Sec. (24.2-36.6) H 01/06/19 17:32 20.7 Sec. (15.1-19.6) H 01/06/19 17:32 POC ABG pH 7.024 (7.35-7.45) L 01/07/19 15:33 POC ABG pCO2 30.8 (35-45) L 01/07/19 15:33 POC ABG pO2 109 (80-105) H 01/07/19 15:33 POC ABG HCO3 8.0 (22-26 mml/L) 01/07/19 15:33 POC ABG Total CO2 9 (23-27mmol/L) 01/07/19 15:33 POC ABG O2 Sat 95 01/07/19 15:33 POC ABG Base Excess -23 ((-2) - (+3)mmol/L) 01/07/19 15:33 70 % 01/07/19 15:33 Sodium 139 mmol/L (137-145) 01/07/19 11:49 Potassium 3.6 mmol/L (3.6-5.0) 01/07/19 11:49 Chloride 102.5 mmol/L (98-107) 01/07/19 11:49 Carbon Dioxide 7 mmol/L (22-30) L* 01/07/19 11:49 32 mmol/L 01/07/19 11:49 BUN 20 mg/dL (9-20) 01/07/19 11:49 1.6 mg/dL (0.8-1.5) H 01/07/19 11:49 Estimated GFR 45 ml/min 01/07/19 11:49 13 % 01/07/19 11:49 Glucose 124 mg/dL (75-100) H 01/07/19 11:49 POC Glucose 148 (70-105) H 01/07/19 11:12 Lactic Acid 15.40 mmol/L (0.7-2.0) H* 01/07/19 11:49 Calcium 7.6 mg/dL (8.4-10.2) L 01/07/19 11:49 Phosphorus 4.90 mg/dL (2.5-4.5) H 01/07/19 00:12 Magnesium 1.30 mg/dL (1.7-2.3) L 01/07/19 00:12 4.80 mg/dL (0.1-1.2) H 01/06/19 17:32 AST 44 units/L (5-40) H 01/06/19 17:32 ALT 19 units/L (7-56) 01/06/19 17:32 127 units/L (35-129) 01/06/19 17:32 73.0 umol/L (25-60) H 01/06/19 19:57 50 units/L (55-170) L 01/06/19 17:32 < 0.010 ng/mL (0.00-0.029) 01/06/19 17:32 NT-Pro-B Natriuret Pep 363.9 pg/mL (0-900) 01/06/19 17:32 7.2 g/dL (6.3-8.2) 01/06/19 17:32 2.6 g/dL (3.9-5) L 01/06/19 17:32 0.6 % 01/06/19 17:32 Blood Type O POSITIVE 01/06/19 17:32 Antibody Screen Negative 01/06/19 17:32 Active Medications - Current Medications Current Medications: Generic Name Dose Route Start Last Admin Trade Name Freq PRN Reason Stop Dose Admin Dextrose 0 ml 01/06/19 23:25 01/07/19 04:44 D50w (25gm) Syringe IV 10 ml PRN PRN Administration Hypoglycemia Sodium Bicarbonate 50 meq/ 1,050 mls @ 75 mls/hr 01/07/19 07:30 01/07/19 08:40 Dextrose IV 75 mls/hr DIRECT JULIAN Administration Norepinephrine 4 mg in 250 mls @ 7.5 mls/hr 01/07/19 14:30 01/07/19 15:23 Levophed Drip 4 Mg/Ns 250 Ml IV 6 mcg/min TITR JULIAN 22.5 mls/hr Titration Protocol 2 MCG/MIN Ceftriaxone Sodium 2 gm in 100 mls @ 200 mls/hr 01/07/19 22:00 Rocephin/Ns 2 Gm/100 Ml IV Q12HR JULIAN Protocol Lorazepam 1 mg 01/06/19 20:43 01/07/19 14:12 Ativan IV 1 mg Q4H PRN Administration Agitation Morphine Sulfate 2 mg 01/06/19 20:43 Morphine IV Q4H PRN Pain, Moderate (4-6) Sodium Chloride 10 ml 01/06/19 22:00 01/07/19 13:09 Sodium Chloride Flush Syringe 10 Ml IV 10 ml BID JULIAN Administration Sodium Chloride 10 ml 01/06/19 20:04 Sodium Chloride Flush Syringe 10 Ml IV PRN PRN LINE FLUSH Nutrition/Malnutrition Assess - Dietary Evaluation Nutrition/Malnutrition Findings: Nutrition Notes Start: 01/07/19 13:52 Freq: Status: Active Protocol: Document 01/07/19 13:52 LM (Rec: 01/07/19 14:00 LM [email or web address]) Nutrition Notes Need for Assessment generated from: MD Order,Education Initial or Follow up Brief Note Current Diagnosis Sepsis Other Pertinent Diagnosis Cirrhosis, ESLD, Hep C, Pneumonia, nicotine dependance Current Diet NPO Labs/Tests BG 124 Pertinent Medications Reviewed Height 5 ft 7 in Weight 61.235 kg [place] Body Weight (kg) 67.27 BMI 21.1 Subjective/Other Information MD consult for diet education for DKA. Pt in ED. Noticed unstable BG labs. Pt with low BG (65) on admission. Nutrition Intervention Additional Comments F/U for assessment and diet education needs
[2019-01-07 15:54] LABS: Calcium 7.1 mg/dL (8.4-10.2)
--- NOTE | 2019-01-07 16:24 | Consultation ---
History of Present Illness - Reason for Consult Consult date: 01/07/19 - History of Present Illness 53 yo M PMHx HCV (s/p treatment), ESLD w/ varices, tobacco abuse admitted to the hospital with SOB and AMS. He is altered and moaning, as such the history was obtained from both his mother and the chart. his symptoms began approximately 1 day prior to being admitted. He also complained of fatigue and weakness, and was brought to the hospital by EMS. His mother notes a long history of ascites, which is generally unchanged from previous. She denies any other new symptoms at the present time. His mother reports he had a gram negative bacteremia recently, but not at this hospital and she was unable to provide further details of organism or treatment. He was historically treated for his hep C in the past and remains clear per his mother. Afebrile since admission, currently receiving ceftriaxone. Neutropenic with a white count of 1.1. Blood cultures from 01/06 are 2/2 GNR pending further finalization. A 01/07 CTAP showed enteritis/colitis with possible early ischemia. Past History Past Medical History: hepatitis (HCV-s/p treatment), other (Cirrhosis, Esophageal varices) Past Surgical History: Other (Esophageal banding) Social history: single Family history: no significant family history (reviewed) Medications and Allergies Allergies Allergy/AdvReac Type Severity Reaction Status Date / Time No Known Allergies Allergy Verified 01/28/16 21:54 Home Medications Medication Instructions Recorded Confirmed Last Taken Type levoFLOXacin [Levaquin TAB] 750 mg PO Q24HR #7 tablet 02/03/16 Unknown Rx Active Meds: Active Medications Dextrose (D50w (25gm) Syringe) 0 ml IV PRN PRN PRN Reason: Hypoglycemia Last Admin: 01/07/19 04:44 Dose: 10 ml Documented by: Sodium Bicarbonate 50 meq/ (Dextrose) 1,050 mls @ 75 mls/hr IV DIRECT JULIAN Last Admin: 01/07/19 08:40 Dose: 75 mls/hr Documented by: Norepinephrine (Levophed Drip 4 Mg/Ns 250 Ml) 4 mg in 250 mls @ 7.5 mls/hr IV TITR JULIAN; Protocol Last Titration: 01/07/19 15:23 Dose: 6 mcg/min, 22.5 mls/hr Documented by: Ceftriaxone Sodium (Rocephin/Ns 2 Gm/100 Ml) 2 gm in 100 mls @ 200 mls/hr IV Q12HR JULIAN; Protocol Lorazepam (Ativan) 1 mg IV Q4H PRN PRN Reason: Agitation Last Admin: 01/07/19 14:12 Dose: 1 mg Documented by: Morphine Sulfate (Morphine) 2 mg IV Q4H PRN PRN Reason: Pain, Moderate (4-6) Sodium Chloride (Sodium Chloride Flush Syringe 10 Ml) 10 ml IV BID JULIAN Last Admin: 01/07/19 13:09 Dose: 10 ml Documented by: Sodium Chloride (Sodium Chloride Flush Syringe 10 Ml) 10 ml IV PRN PRN PRN Reason: LINE FLUSH Review of Systems ROS unobtainable: due to mental status Physical Examination - Physical Exam Narrative exam: Physical Exam: Constitutional: Disoriented, with biPAP on. Head, Ears, Nose: Normocephalic, atraumatic. External ears, nose normal Eyes: Conjunctivae/corneas clear. No icterus. No ptosis. Neck: Supple, no meningeal signs Oral: dentition fair, no thrush Cardiovascular: S1, S2 normal. Respiratory: Good air entry, clear to auscultation bilaterally GI: Soft, mildly tender; bowel sounds normal. No peritoneal signs. Mild distension Musculoskeletal: No pedal edema, no cyanosis. Skin: No rash or abscess Hem/Lymphatic: No palpable cervical or supraclavicular nodes. No lymphangitis Psych: Disoriented Neurological: Awake, disoriented, spontaneously moving all limbs. - Constitutional Vitals: Vital Signs Temp Pulse Resp BP Pulse Ox 98.1 F 122 H 22 94/50 100 01/07/19 07:31 01/07/19 13:44 01/07/19 13:44 01/07/19 13:44 01/07/19 13:44 Temperature -Last 24 Hours Temperature 98.1 F Temperature 98.5 F Temperature 97.8 F Temperature 97.8 F Results - Labs CBC & Chem 7: 01/06/19 17:32 01/07/19 15:10 Labs: Abnormal lab results 01/06/19 01/06/19 01/06/19 Range/Units 17:32 17:32 17:32 WBC 1.1 L* (4.5-11.0) K/mm3 RBC 2.78 L (3.65-5.03) M/mm3 Hgb 11.2 L (11.8-15.2) gm/dl Hct 34.5 L (35.5-45.6) % MCV 124 H (84-94) fl MCH 40 H (28-32) pg RDW 18.1 H (13.2-15.2) % Plt Count 77 L (140-440) K/mm3 Seg Neuts % (Manual) 72.0 H (40.0-70.0) % Lymphocytes % (Manual) 12.0 L (13.4-35.0) % Seg Neutrophils # Man 0.8 L (1.8-7.7) K/mm3 Lymphocytes # (Manual) 0.1 L (1.2-5.4) K/mm3 PT 25.0 H (12.2-14.9) Sec. INR 2.32 H (0.87-1.13) APTT 38.6 H (24.2-36.6) Sec. Thrombin Time 20.7 H (15.1-19.6) Sec. POC ABG pH (7.35-7.45) POC ABG pCO2 (35-45) POC ABG pO2 (80-105) Sodium 135 L (137-145) mmol/L Potassium (3.6-5.0) mmol/L Carbon Dioxide 14 L (22-30) mmol/L Creatinine 0.6 L (0.8-1.5) mg/dL Glucose (75-100) mg/dL POC Glucose (70-105) Lactic Acid (0.7-2.0) mmol/L Calcium 8.3 L (8.4-10.2) mg/dL Phosphorus (2.5-4.5) mg/dL Magnesium 1.40 L (1.7-2.3) mg/dL Total Bilirubin 4.80 H (0.1-1.2) mg/dL AST 44 H (5-40) units/L Ammonia (25-60) umol/L Total Creatine Kinase 50 L (55-170) units/L Albumin 2.6 L (3.9-5) g/dL 01/06/19 01/06/19 01/06/19 Range/Units 17:32 19:57 20:26 WBC (4.5-11.0) K/mm3 RBC (3.65-5.03) M/mm3 Hgb (11.8-15.2) gm/dl Hct (35.5-45.6) % MCV (84-94) fl MCH (28-32) pg RDW (13.2-15.2) % Plt Count (140-440) K/mm3 Seg Neuts % (Manual) (40.0-70.0) % Lymphocytes % (Manual) (13.4-35.0) % Seg Neutrophils # Man (1.8-7.7) K/mm3 Lymphocytes # (Manual) (1.2-5.4) K/mm3 PT (12.2-14.9) Sec. INR (0.87-1.13) APTT (24.2-36.6) Sec. Thrombin Time (15.1-19.6) Sec. POC ABG pH (7.35-7.45) POC ABG pCO2 (35-45) POC ABG pO2 (80-105) Sodium (137-145) mmol/L Potassium (3.6-5.0) mmol/L Carbon Dioxide (22-30) mmol/L Creatinine (0.8-1.5) mg/dL Glucose (75-100) mg/dL POC Glucose 42 L (70-105) Lactic Acid 8.80 H* (0.7-2.0) mmol/L Calcium (8.4-10.2) mg/dL Phosphorus (2.5-4.5) mg/dL Magnesium (1.7-2.3) mg/dL Total Bilirubin (0.1-1.2) mg/dL AST (5-40) units/L Ammonia 73.0 H (25-60) umol/L Total Creatine Kinase (55-170) units/L Albumin (3.9-5) g/dL 01/06/19 01/06/19 01/07/19 Range/Units 20:59 23:13 00:12 WBC (4.5-11.0) K/mm3 RBC (3.65-5.03) M/mm3 Hgb (11.8-15.2) gm/dl Hct (35.5-45.6) % MCV (84-94) fl MCH (28-32) pg RDW (13.2-15.2) % Plt Count (140-440) K/mm3 Seg Neuts % (Manual) (40.0-70.0) % Lymphocytes % (Manual) (13.4-35.0) % Seg Neutrophils # Man (1.8-7.7) K/mm3 Lymphocytes # (Manual) (1.2-5.4) K/mm3 PT (12.2-14.9) Sec. INR (0.87-1.13) APTT (24.2-36.6) Sec. Thrombin Time (15.1-19.6) Sec. POC ABG pH (7.35-7.45) POC ABG pCO2 (35-45) POC ABG pO2 (80-105) Sodium (137-145) mmol/L Potassium (3.6-5.0) mmol/L Carbon Dioxide (22-30) mmol/L Creatinine (0.8-1.5) mg/dL Glucose (75-100) mg/dL POC Glucose 135 H 60 L (70-105) Lactic Acid 12.60 H* (0.7-2.0) mmol/L Calcium (8.4-10.2) mg/dL Phosphorus (2.5-4.5) mg/dL Magnesium (1.7-2.3) mg/dL Total Bilirubin (0.1-1.2) mg/dL AST (5-40) units/L Ammonia (25-60) umol/L Total Creatine Kinase (55-170) units/L Albumin (3.9-5) g/dL 01/07/19 01/07/19 01/07/19 Range/Units 00:12 00:12 01:42 WBC (4.5-11.0) K/mm3 RBC (3.65-5.03) M/mm3 Hgb (11.8-15.2) gm/dl Hct (35.5-45.6) % MCV (84-94) fl MCH (28-32) pg RDW (13.2-15.2) % Plt Count (140-440) K/mm3 Seg Neuts % (Manual) (40.0-70.0) % Lymphocytes % (Manual) (13.4-35.0) % Seg Neutrophils # Man (1.8-7.7) K/mm3 Lymphocytes # (Manual) (1.2-5.4) K/mm3 PT (12.2-14.9) Sec. INR (0.87-1.13) APTT (24.2-36.6) Sec. Thrombin Time (15.1-19.6) Sec. POC ABG pH (7.35-7.45) POC ABG pCO2 (35-45) POC ABG pO2 (80-105) Sodium 136 L (137-145) mmol/L Potassium (3.6-5.0) mmol/L Carbon Dioxide 10 L (22-30) mmol/L Creatinine (0.8-1.5) mg/dL Glucose 66 L (75-100) mg/dL POC Glucose 65 L (70-105) Lactic Acid (0.7-2.0) mmol/L Calcium 7.7 L (8.4-10.2) mg/dL Phosphorus 4.90 H (2.5-4.5) mg/dL Magnesium 1.30 L (1.7-2.3) mg/dL Total Bilirubin (0.1-1.2) mg/dL AST (5-40) units/L Ammonia (25-60) umol/L Total Creatine Kinase (55-170) units/L Albumin (3.9-5) g/dL 01/07/19 01/07/19 01/07/19 Range/Units 03:03 06:08 06:08 WBC (4.5-11.0) K/mm3 RBC (3.65-5.03) M/mm3 Hgb (11.8-15.2) gm/dl Hct (35.5-45.6) % MCV (84-94) fl MCH (28-32) pg RDW (13.2-15.2) % Plt Count (140-440) K/mm3 Seg Neuts % (Manual) (40.0-70.0) % Lymphocytes % (Manual) (13.4-35.0) % Seg Neutrophils # Man (1.8-7.7) K/mm3 Lymphocytes # (Manual) (1.2-5.4) K/mm3 PT (12.2-14.9) Sec. INR (0.87-1.13) APTT (24.2-36.6) Sec. Thrombin Time (15.1-19.6) Sec. POC ABG pH (7.35-7.45) POC ABG pCO2 (35-45) POC ABG pO2 (80-105) Sodium (137-145) mmol/L Potassium 3.4 L (3.6-5.0) mmol/L Carbon Dioxide 11 L (22-30) mmol/L Creatinine (0.8-1.5) mg/dL Glucose (75-100) mg/dL POC Glucose 65 L (70-105) Lactic Acid 14.40 H* (0.7-2.0) mmol/L Calcium 7.6 L (8.4-10.2) mg/dL Phosphorus (2.5-4.5) mg/dL Magnesium (1.7-2.3) mg/dL Total Bilirubin (0.1-1.2) mg/dL AST (5-40) units/L Ammonia (25-60) umol/L Total Creatine Kinase (55-170) units/L Albumin (3.9-5) g/dL 01/07/19 01/07/19 01/07/19 Range/Units 06:16 06:56 08:16 WBC (4.5-11.0) K/mm3 RBC (3.65-5.03) M/mm3 Hgb (11.8-15.2) gm/dl Hct (35.5-45.6) % MCV (84-94) fl MCH (28-32) pg RDW (13.2-15.2) % Plt Count (140-440) K/mm3 Seg Neuts % (Manual) (40.0-70.0) % Lymphocytes % (Manual) (13.4-35.0) % Seg Neutrophils # Man (1.8-7.7) K/mm3 Lymphocytes # (Manual) (1.2-5.4) K/mm3 PT (12.2-14.9) Sec. INR (0.87-1.13) APTT (24.2-36.6) Sec. Thrombin Time (15.1-19.6) Sec. POC ABG pH 7.109 L (7.35-7.45) POC ABG pCO2 (35-45) POC ABG pO2 71 L (80-105) Sodium (137-145) mmol/L Potassium (3.6-5.0) mmol/L Carbon Dioxide 10 L (22-30) mmol/L Creatinine (0.8-1.5) mg/dL Glucose (75-100) mg/dL POC Glucose 108 H (70-105) Lactic Acid (0.7-2.0) mmol/L Calcium 7.8 L (8.4-10.2) mg/dL Phosphorus (2.5-4.5) mg/dL Magnesium (1.7-2.3) mg/dL Total Bilirubin (0.1-1.2) mg/dL AST (5-40) units/L Ammonia (25-60) umol/L Total Creatine Kinase (55-170) units/L Albumin (3.9-5) g/dL 01/07/19 01/07/19 01/07/19 Range/Units 08:16 09:58 10:46 WBC (4.5-11.0) K/mm3 RBC (3.65-5.03) M/mm3 Hgb (11.8-15.2) gm/dl Hct (35.5-45.6) % MCV (84-94) fl MCH (28-32) pg RDW (13.2-15.2) % Plt Count (140-440) K/mm3 Seg Neuts % (Manual) (40.0-70.0) % Lymphocytes % (Manual) (13.4-35.0) % Seg Neutrophils # Man (1.8-7.7) K/mm3 Lymphocytes # (Manual) (1.2-5.4) K/mm3 PT (12.2-14.9) Sec. INR (0.87-1.13) APTT (24.2-36.6) Sec. Thrombin Time (15.1-19.6) Sec. POC ABG pH (7.35-7.45) POC ABG pCO2 (35-45) POC ABG pO2 (80-105) Sodium (137-145) mmol/L Potassium (3.6-5.0) mmol/L Carbon Dioxide (22-30) mmol/L Creatinine (0.8-1.5) mg/dL Glucose (75-100) mg/dL POC Glucose 45 L (70-105) Lactic Acid 14.60 H* 17.00 H* (0.7-2.0) mmol/L Calcium (8.4-10.2) mg/dL Phosphorus (2.5-4.5) mg/dL Magnesium (1.7-2.3) mg/dL Total Bilirubin (0.1-1.2) mg/dL AST (5-40) units/L Ammonia (25-60) umol/L Total Creatine Kinase (55-170) units/L Albumin (3.9-5) g/dL 01/07/19 01/07/19 01/07/19 Range/Units 11:12 11:49 11:49 WBC (4.5-11.0) K/mm3 RBC (3.65-5.03) M/mm3 Hgb (11.8-15.2) gm/dl Hct (35.5-45.6) % MCV (84-94) fl MCH (28-32) pg RDW (13.2-15.2) % Plt Count (140-440) K/mm3 Seg Neuts % (Manual) (40.0-70.0) % Lymphocytes % (Manual) (13.4-35.0) % Seg Neutrophils # Man (1.8-7.7) K/mm3 Lymphocytes # (Manual) (1.2-5.4) K/mm3 PT (12.2-14.9) Sec. INR (0.87-1.13) APTT (24.2-36.6) Sec. Thrombin Time (15.1-19.6) Sec. POC ABG pH (7.35-7.45) POC ABG pCO2 (35-45) POC ABG pO2 (80-105) Sodium (137-145) mmol/L Potassium (3.6-5.0) mmol/L Carbon Dioxide 7 L* (22-30) mmol/L Creatinine 1.6 H (0.8-1.5) mg/dL Glucose 124 H (75-100) mg/dL POC Glucose 148 H (70-105) Lactic Acid 15.40 H* (0.7-2.0) mmol/L Calcium 7.6 L (8.4-10.2) mg/dL Phosphorus (2.5-4.5) mg/dL Magnesium (1.7-2.3) mg/dL Total Bilirubin (0.1-1.2) mg/dL AST (5-40) units/L Ammonia (25-60) umol/L Total Creatine Kinase (55-170) units/L Albumin (3.9-5) g/dL 01/07/19 01/07/19 01/07/19 Range/Units 15:10 15:10 15:33 WBC (4.5-11.0) K/mm3 RBC (3.65-5.03) M/mm3 Hgb (11.8-15.2) gm/dl Hct (35.5-45.6) % MCV (84-94) fl MCH (28-32) pg RDW (13.2-15.2) % Plt Count (140-440) K/mm3 Seg Neuts % (Manual) (40.0-70.0) % Lymphocytes % (Manual) (13.4-35.0) % Seg Neutrophils # Man (1.8-7.7) K/mm3 Lymphocytes # (Manual) (1.2-5.4) K/mm3 PT (12.2-14.9) Sec. INR (0.87-1.13) APTT (24.2-36.6) Sec. Thrombin Time (15.1-19.6) Sec. POC ABG pH 7.024 L (7.35-7.45) POC ABG pCO2 30.8 L (35-45) POC ABG pO2 109 H (80-105) Sodium 136 L (137-145) mmol/L Potassium (3.6-5.0) mmol/L Carbon Dioxide 8 L* (22-30) mmol/L Creatinine (0.8-1.5) mg/dL Glucose 122 H (75-100) mg/dL POC Glucose (70-105) Lactic Acid 15.80 H* (0.7-2.0) mmol/L Calcium 7.1 L (8.4-10.2) mg/dL Phosphorus (2.5-4.5) mg/dL Magnesium (1.7-2.3) mg/dL Total Bilirubin (0.1-1.2) mg/dL AST (5-40) units/L Ammonia (25-60) umol/L Total Creatine Kinase (55-170) units/L Albumin (3.9-5) g/dL Assessment and Plan Cultures: 01/06 BCx - 2/ GNR pending finalization. A/P: 53 yo M PMHx HCV (s/p treatment), ESLD w/ varices, tobacco abuse admitted to the hospital with SOB and AMS, found to have bacteremia 1. Sepsis secondary to gram negative bacteremia - Present on admission with neutropenia, tachycardia, and tachypnea. Gram negative bacteremia likely secondary to his intra-abdominal pathology with enteritis/colitis and his ESLD increasing his vascular permeability allowing for bacterial translocation. SBP not seen on CT, unable to obtain tap due to INR. continue ceftriaxone for now and follow up on blood culture finalization. 2. Enteritis/colitis; possible ischemia 3. Hx of HCV s/p treatment 4. End stage liver disease with esophageal varices - normal transaminases but severely coagulopathic. 5. Tobacco abuse Recs: - continue ceftriaxone 2g q24h - follow up blood cultures for finalization - Agree with surgical consult for possible ischemia - Risk of loss of life - poor prognosis. Thank you for the consult, we will continue to follow. MD [facility] ([facility]) M: [phone] O: [phone] F: [phone]
--- NOTE | 2019-01-07 16:31 | Consultation ---
History of Present Illness Consult date: 01/07/19 Reason for consult: other (r/o ischemic bowel) Requesting physician: REYNA SANCHES Chief complaint: breathing difficulties - History of present illness History of present illness: 53 YO Male with HCV,Cirrhosis, ESLD complicated by Esophageal Varices, Nicotine Dependence presents to ED for evaluation. Pt began having breathing issues. He progressively declined. Gen Surg was asked to eval for ischemic bowel. Pt unable to provide any history. History obtained from chart and mother. Past History Past Medical History: hepatitis (HCV-s/p treatment), other (Cirrhosis, Esophageal varices) Past Surgical History: Other (Esophageal banding) Social history: single Family history: no significant family history (reviewed) Medications and Allergies Allergies Allergy/AdvReac Type Severity Reaction Status Date / Time No Known Allergies Allergy Verified 01/28/16 21:54 Home Medications Medication Instructions Recorded Confirmed Last Taken Type levoFLOXacin [Levaquin TAB] 750 mg PO Q24HR #7 tablet 02/03/16 Unknown Rx Active Meds: Active Medications Dextrose (D50w (25gm) Syringe) 0 ml IV PRN PRN PRN Reason: Hypoglycemia Last Admin: 01/07/19 04:44 Dose: 10 ml Documented by: Sodium Bicarbonate 50 meq/ (Dextrose) 1,050 mls @ 75 mls/hr IV DIRECT JULIAN Last Admin: 01/07/19 08:40 Dose: 75 mls/hr Documented by: Norepinephrine (Levophed Drip 4 Mg/Ns 250 Ml) 4 mg in 250 mls @ 7.5 mls/hr IV TITR JULIAN; Protocol Last Titration: 01/07/19 15:23 Dose: 6 mcg/min, 22.5 mls/hr Documented by: Ceftriaxone Sodium (Rocephin/Ns 2 Gm/100 Ml) 2 gm in 100 mls @ 200 mls/hr IV Q12HR JULIAN; Protocol Lorazepam (Ativan) 1 mg IV Q4H PRN PRN Reason: Agitation Last Admin: 01/07/19 14:12 Dose: 1 mg Documented by: Morphine Sulfate (Morphine) 2 mg IV Q4H PRN PRN Reason: Pain, Moderate (4-6) Sodium Chloride (Sodium Chloride Flush Syringe 10 Ml) 10 ml IV BID JULIAN Last Admin: 01/07/19 13:09 Dose: 10 ml Documented by: Sodium Chloride (Sodium Chloride Flush Syringe 10 Ml) 10 ml IV PRN PRN PRN Reason: LINE FLUSH Review of Systems ROS unobtainable: due to mental status Exam Vital Signs Temp Pulse Resp BP Pulse Ox 97.8 F 131 H 28 H 112/67 95 01/06/19 17:31 01/06/19 17:31 01/06/19 17:31 01/06/19 17:31 01/06/19 17:31 - General physical appearance Positive: other (minimally responsive. ) - Eyes Positive: icteric - Respiratory Positive: other (increased work of breathing on BiPap) - Cardiovascular Rhythm: regular (tachy) - Abdomen Abdomen: Present: soft, bowel sounds hypoactive, distended. Absent: guarding, wound, surgical scars - Integumentary other (jaundice) - Psychiatric Psychiatric: other (minimally responsive) Results - Labs 01/06/19 17:32 01/07/19 15:10 Abnormal lab results 01/06/19 01/06/19 01/06/19 Range/Units 17:32 17:32 17:32 WBC 1.1 L* (4.5-11.0) K/mm3 RBC 2.78 L (3.65-5.03) M/mm3 Hgb 11.2 L (11.8-15.2) gm/dl Hct 34.5 L (35.5-45.6) % MCV 124 H (84-94) fl MCH 40 H (28-32) pg RDW 18.1 H (13.2-15.2) % Plt Count 77 L (140-440) K/mm3 Seg Neuts % (Manual) 72.0 H (40.0-70.0) % Lymphocytes % (Manual) 12.0 L (13.4-35.0) % Seg Neutrophils # Man 0.8 L (1.8-7.7) K/mm3 Lymphocytes # (Manual) 0.1 L (1.2-5.4) K/mm3 PT 25.0 H (12.2-14.9) Sec. INR 2.32 H (0.87-1.13) APTT 38.6 H (24.2-36.6) Sec. Thrombin Time 20.7 H (15.1-19.6) Sec. POC ABG pH (7.35-7.45) POC ABG pCO2 (35-45) POC ABG pO2 (80-105) Sodium 135 L (137-145) mmol/L Potassium (3.6-5.0) mmol/L Carbon Dioxide 14 L (22-30) mmol/L Creatinine 0.6 L (0.8-1.5) mg/dL Glucose (75-100) mg/dL POC Glucose (70-105) Lactic Acid (0.7-2.0) mmol/L Calcium 8.3 L (8.4-10.2) mg/dL Phosphorus (2.5-4.5) mg/dL Magnesium 1.40 L (1.7-2.3) mg/dL Total Bilirubin 4.80 H (0.1-1.2) mg/dL AST 44 H (5-40) units/L Ammonia (25-60) umol/L Total Creatine Kinase 50 L (55-170) units/L Albumin 2.6 L (3.9-5) g/dL 01/06/19 01/06/19 01/06/19 Range/Units 17:32 19:57 20:26 WBC (4.5-11.0) K/mm3 RBC (3.65-5.03) M/mm3 Hgb (11.8-15.2) gm/dl Hct (35.5-45.6) % MCV (84-94) fl MCH (28-32) pg RDW (13.2-15.2) % Plt Count (140-440) K/mm3 Seg Neuts % (Manual) (40.0-70.0) % Lymphocytes % (Manual) (13.4-35.0) % Seg Neutrophils # Man (1.8-7.7) K/mm3 Lymphocytes # (Manual) (1.2-5.4) K/mm3 PT (12.2-14.9) Sec. INR (0.87-1.13) APTT (24.2-36.6) Sec. Thrombin Time (15.1-19.6) Sec. POC ABG pH (7.35-7.45) POC ABG pCO2 (35-45) POC ABG pO2 (80-105) Sodium (137-145) mmol/L Potassium (3.6-5.0) mmol/L Carbon Dioxide (22-30) mmol/L Creatinine (0.8-1.5) mg/dL Glucose (75-100) mg/dL POC Glucose 42 L (70-105) Lactic Acid 8.80 H* (0.7-2.0) mmol/L Calcium (8.4-10.2) mg/dL Phosphorus (2.5-4.5) mg/dL Magnesium (1.7-2.3) mg/dL Total Bilirubin (0.1-1.2) mg/dL AST (5-40) units/L Ammonia 73.0 H (25-60) umol/L Total Creatine Kinase (55-170) units/L Albumin (3.9-5) g/dL 01/06/19 01/06/19 01/07/19 Range/Units 20:59 23:13 00:12 WBC (4.5-11.0) K/mm3 RBC (3.65-5.03) M/mm3 Hgb (11.8-15.2) gm/dl Hct (35.5-45.6) % MCV (84-94) fl MCH (28-32) pg RDW (13.2-15.2) % Plt Count (140-440) K/mm3 Seg Neuts % (Manual) (40.0-70.0) % Lymphocytes % (Manual) (13.4-35.0) % Seg Neutrophils # Man (1.8-7.7) K/mm3 Lymphocytes # (Manual) (1.2-5.4) K/mm3 PT (12.2-14.9) Sec. INR (0.87-1.13) APTT (24.2-36.6) Sec. Thrombin Time (15.1-19.6) Sec. POC ABG pH (7.35-7.45) POC ABG pCO2 (35-45) POC ABG pO2 (80-105) Sodium (137-145) mmol/L Potassium (3.6-5.0) mmol/L Carbon Dioxide (22-30) mmol/L Creatinine (0.8-1.5) mg/dL Glucose (75-100) mg/dL POC Glucose 135 H 60 L (70-105) Lactic Acid 12.60 H* (0.7-2.0) mmol/L Calcium (8.4-10.2) mg/dL Phosphorus (2.5-4.5) mg/dL Magnesium (1.7-2.3) mg/dL Total Bilirubin (0.1-1.2) mg/dL AST (5-40) units/L Ammonia (25-60) umol/L Total Creatine Kinase (55-170) units/L Albumin (3.9-5) g/dL 01/07/19 01/07/19 01/07/19 Range/Units 00:12 00:12 01:42 WBC (4.5-11.0) K/mm3 RBC (3.65-5.03) M/mm3 Hgb (11.8-15.2) gm/dl Hct (35.5-45.6) % MCV (84-94) fl MCH (28-32) pg RDW (13.2-15.2) % Plt Count (140-440) K/mm3 Seg Neuts % (Manual) (40.0-70.0) % Lymphocytes % (Manual) (13.4-35.0) % Seg Neutrophils # Man (1.8-7.7) K/mm3 Lymphocytes # (Manual) (1.2-5.4) K/mm3 PT (12.2-14.9) Sec. INR (0.87-1.13) APTT (24.2-36.6) Sec. Thrombin Time (15.1-19.6) Sec. POC ABG pH (7.35-7.45) POC ABG pCO2 (35-45) POC ABG pO2 (80-105) Sodium 136 L (137-145) mmol/L Potassium (3.6-5.0) mmol/L Carbon Dioxide 10 L (22-30) mmol/L Creatinine (0.8-1.5) mg/dL Glucose 66 L (75-100) mg/dL POC Glucose 65 L (70-105) Lactic Acid (0.7-2.0) mmol/L Calcium 7.7 L (8.4-10.2) mg/dL Phosphorus 4.90 H (2.5-4.5) mg/dL Magnesium 1.30 L (1.7-2.3) mg/dL Total Bilirubin (0.1-1.2) mg/dL AST (5-40) units/L Ammonia (25-60) umol/L Total Creatine Kinase (55-170) units/L Albumin (3.9-5) g/dL 01/07/19 01/07/19 01/07/19 Range/Units 03:03 06:08 06:08 WBC (4.5-11.0) K/mm3 RBC (3.65-5.03) M/mm3 Hgb (11.8-15.2) gm/dl Hct (35.5-45.6) % MCV (84-94) fl MCH (28-32) pg RDW (13.2-15.2) % Plt Count (140-440) K/mm3 Seg Neuts % (Manual) (40.0-70.0) % Lymphocytes % (Manual) (13.4-35.0) % Seg Neutrophils # Man (1.8-7.7) K/mm3 Lymphocytes # (Manual) (1.2-5.4) K/mm3 PT (12.2-14.9) Sec. INR (0.87-1.13) APTT (24.2-36.6) Sec. Thrombin Time (15.1-19.6) Sec. POC ABG pH (7.35-7.45) POC ABG pCO2 (35-45) POC ABG pO2 (80-105) Sodium (137-145) mmol/L Potassium 3.4 L (3.6-5.0) mmol/L Carbon Dioxide 11 L (22-30) mmol/L Creatinine (0.8-1.5) mg/dL Glucose (75-100) mg/dL POC Glucose 65 L (70-105) Lactic Acid 14.40 H* (0.7-2.0) mmol/L Calcium 7.6 L (8.4-10.2) mg/dL Phosphorus (2.5-4.5) mg/dL Magnesium (1.7-2.3) mg/dL Total Bilirubin (0.1-1.2) mg/dL AST (5-40) units/L Ammonia (25-60) umol/L Total Creatine Kinase (55-170) units/L Albumin (3.9-5) g/dL 01/07/19 01/07/19 01/07/19 Range/Units 06:16 06:56 08:16 WBC (4.5-11.0) K/mm3 RBC (3.65-5.03) M/mm3 Hgb (11.8-15.2) gm/dl Hct (35.5-45.6) % MCV (84-94) fl MCH (28-32) pg RDW (13.2-15.2) % Plt Count (140-440) K/mm3 Seg Neuts % (Manual) (40.0-70.0) % Lymphocytes % (Manual) (13.4-35.0) % Seg Neutrophils # Man (1.8-7.7) K/mm3 Lymphocytes # (Manual) (1.2-5.4) K/mm3 PT (12.2-14.9) Sec. INR (0.87-1.13) APTT (24.2-36.6) Sec. Thrombin Time (15.1-19.6) Sec. POC ABG pH 7.109 L (7.35-7.45) POC ABG pCO2 (35-45) POC ABG pO2 71 L (80-105) Sodium (137-145) mmol/L Potassium (3.6-5.0) mmol/L Carbon Dioxide 10 L (22-30) mmol/L Creatinine (0.8-1.5) mg/dL Glucose (75-100) mg/dL POC Glucose 108 H (70-105) Lactic Acid (0.7-2.0) mmol/L Calcium 7.8 L (8.4-10.2) mg/dL Phosphorus (2.5-4.5) mg/dL Magnesium (1.7-2.3) mg/dL Total Bilirubin (0.1-1.2) mg/dL AST (5-40) units/L Ammonia (25-60) umol/L Total Creatine Kinase (55-170) units/L Albumin (3.9-5) g/dL 01/07/19 01/07/19 01/07/19 Range/Units 08:16 09:58 10:46 WBC (4.5-11.0) K/mm3 RBC (3.65-5.03) M/mm3 Hgb (11.8-15.2) gm/dl Hct (35.5-45.6) % MCV (84-94) fl MCH (28-32) pg RDW (13.2-15.2) % Plt Count (140-440) K/mm3 Seg Neuts % (Manual) (40.0-70.0) % Lymphocytes % (Manual) (13.4-35.0) % Seg Neutrophils # Man (1.8-7.7) K/mm3 Lymphocytes # (Manual) (1.2-5.4) K/mm3 PT (12.2-14.9) Sec. INR (0.87-1.13) APTT (24.2-36.6) Sec. Thrombin Time (15.1-19.6) Sec. POC ABG pH (7.35-7.45) POC ABG pCO2 (35-45) POC ABG pO2 (80-105) Sodium (137-145) mmol/L Potassium (3.6-5.0) mmol/L Carbon Dioxide (22-30) mmol/L Creatinine (0.8-1.5) mg/dL Glucose (75-100) mg/dL POC Glucose 45 L (70-105) Lactic Acid 14.60 H* 17.00 H* (0.7-2.0) mmol/L Calcium (8.4-10.2) mg/dL Phosphorus (2.5-4.5) mg/dL Magnesium (1.7-2.3) mg/dL Total Bilirubin (0.1-1.2) mg/dL AST (5-40) units/L Ammonia (25-60) umol/L Total Creatine Kinase (55-170) units/L Albumin (3.9-5) g/dL 01/07/19 01/07/19 01/07/19 Range/Units 11:12 11:49 11:49 WBC (4.5-11.0) K/mm3 RBC (3.65-5.03) M/mm3 Hgb (11.8-15.2) gm/dl Hct (35.5-45.6) % MCV (84-94) fl MCH (28-32) pg RDW (13.2-15.2) % Plt Count (140-440) K/mm3 Seg Neuts % (Manual) (40.0-70.0) % Lymphocytes % (Manual) (13.4-35.0) % Seg Neutrophils # Man (1.8-7.7) K/mm3 Lymphocytes # (Manual) (1.2-5.4) K/mm3 PT (12.2-14.9) Sec. INR (0.87-1.13) APTT (24.2-36.6) Sec. Thrombin Time (15.1-19.6) Sec. POC ABG pH (7.35-7.45) POC ABG pCO2 (35-45) POC ABG pO2 (80-105) Sodium (137-145) mmol/L Potassium (3.6-5.0) mmol/L Carbon Dioxide 7 L* (22-30) mmol/L Creatinine 1.6 H (0.8-1.5) mg/dL Glucose 124 H (75-100) mg/dL POC Glucose 148 H (70-105) Lactic Acid 15.40 H* (0.7-2.0) mmol/L Calcium 7.6 L (8.4-10.2) mg/dL Phosphorus (2.5-4.5) mg/dL Magnesium (1.7-2.3) mg/dL Total Bilirubin (0.1-1.2) mg/dL AST (5-40) units/L Ammonia (25-60) umol/L Total Creatine Kinase (55-170) units/L Albumin (3.9-5) g/dL 01/07/19 01/07/19 01/07/19 Range/Units 15:10 15:10 15:33 WBC (4.5-11.0) K/mm3 RBC (3.65-5.03) M/mm3 Hgb (11.8-15.2) gm/dl Hct (35.5-45.6) % MCV (84-94) fl MCH (28-32) pg RDW (13.2-15.2) % Plt Count (140-440) K/mm3 Seg Neuts % (Manual) (40.0-70.0) % Lymphocytes % (Manual) (13.4-35.0) % Seg Neutrophils # Man (1.8-7.7) K/mm3 Lymphocytes # (Manual) (1.2-5.4) K/mm3 PT (12.2-14.9) Sec. INR (0.87-1.13) APTT (24.2-36.6) Sec. Thrombin Time (15.1-19.6) Sec. POC ABG pH 7.024 L (7.35-7.45) POC ABG pCO2 30.8 L (35-45) POC ABG pO2 109 H (80-105) Sodium 136 L (137-145) mmol/L Potassium (3.6-5.0) mmol/L Carbon Dioxide 8 L* (22-30) mmol/L Creatinine (0.8-1.5) mg/dL Glucose 122 H (75-100) mg/dL POC Glucose (70-105) Lactic Acid 15.80 H* (0.7-2.0) mmol/L Calcium 7.1 L (8.4-10.2) mg/dL Phosphorus (2.5-4.5) mg/dL Magnesium (1.7-2.3) mg/dL Total Bilirubin (0.1-1.2) mg/dL AST (5-40) units/L Ammonia (25-60) umol/L Total Creatine Kinase (55-170) units/L Albumin (3.9-5) g/dL Diabetes panel 01/06/19 01/07/19 01/07/19 Range/Units 17:32 00:12 06:08 Sodium 135 L 136 L 138 (137-145) mmol/L Potassium 3.7 3.7 3.4 L (3.6-5.0) mmol/L Chloride 99.7 101.2 104.2 (98-107) mmol/L Carbon Dioxide 14 L 10 L 11 L (22-30) mmol/L BUN 12 15 17 (9-20) mg/dL Creatinine 0.6 L 0.9 1.2 (0.8-1.5) mg/dL Glucose 82 66 L 99 (75-100) mg/dL Calcium 8.3 L 7.7 L 7.6 L (8.4-10.2) mg/dL AST 44 H (5-40) units/L ALT 19 (7-56) units/L Alkaline Phosphatase 127 (35-129) units/L Total Protein 7.2 (6.3-8.2) g/dL Albumin 2.6 L (3.9-5) g/dL 0901/07/19 01/07/19 Range/Units 08:16 11:49 15:10 Sodium 137 139 136 L (137-145) mmol/L Potassium 4.0 3.6 4.0 (3.6-5.0) mmol/L Chloride 102.2 102.5 101.0 (98-107) mmol/L Carbon Dioxide 10 L 7 L* 8 L* (22-30) mmol/L BUN 18 20 20 (9-20) mg/dL Creatinine 1.2 1.6 H 1.5 (0.8-1.5) mg/dL Glucose 94 124 H 122 H (75-100) mg/dL Calcium 7.8 L 7.6 L 7.1 L (8.4-10.2) mg/dL AST (5-40) units/L ALT (7-56) units/L Alkaline Phosphatase (35-129) units/L Total Protein (6.3-8.2) g/dL Albumin (3.9-5) g/dL Calcium panel 01/06/19 01/07/19 01/07/19 Range/Units 17:32 00:12 00:12 Calcium 8.3 L 7.7 L (8.4-10.2) mg/dL Phosphorus 4.90 H (2.5-4.5) mg/dL Albumin 2.6 L (3.9-5) g/dL 01/07/19 01/07/19 01/07/19 Range/Units 06:08 08:16 11:49 Calcium 7.6 L 7.8 L 7.6 L (8.4-10.2) mg/dL Phosphorus (2.5-4.5) mg/dL Albumin (3.9-5) g/dL 01/07/19 Range/Units 15:10 Calcium 7.1 L (8.4-10.2) mg/dL Phosphorus (2.5-4.5) mg/dL Albumin (3.9-5) g/dL Pituitary panel 01/06/19 01/07/19 01/07/19 Range/Units 17:32 00:12 06:08 Sodium 135 L 136 L 138 (137-145) mmol/L Potassium 3.7 3.7 3.4 L (3.6-5.0) mmol/L Chloride 99.7 101.2 104.2 (98-107) mmol/L Carbon Dioxide 14 L 10 L 11 L (22-30) mmol/L BUN 12 15 17 (9-20) mg/dL Creatinine 0.6 L 0.9 1.2 (0.8-1.5) mg/dL Glucose 82 66 L 99 (75-100) mg/dL Calcium 8.3 L 7.7 L 7.6 L (8.4-10.2) mg/dL 01/07/19 01/07/19 01/07/19 Range/Units 08:16 11:49 15:10 Sodium 137 139 136 L (137-145) mmol/L Potassium 4.0 3.6 4.0 (3.6-5.0) mmol/L Chloride 102.2 102.5 101.0 (98-107) mmol/L Carbon Dioxide 10 L 7 L* 8 L* (22-30) mmol/L BUN 18 20 20 (9-20) mg/dL Creatinine 1.2 1.6 H 1.5 (0.8-1.5) mg/dL Glucose 94 124 H 122 H (75-100) mg/dL Calcium 7.8 L 7.6 L 7.1 L (8.4-10.2) mg/dL Adrenal panel 01/06/19 01/07/19 01/07/19 Range/Units 17:32 00:12 06:08 Sodium 135 L 136 L 138 (137-145) mmol/L Potassium 3.7 3.7 3.4 L (3.6-5.0) mmol/L Chloride 99.7 101.2 104.2 (98-107) mmol/L Carbon Dioxide 14 L 10 L 11 L (22-30) mmol/L BUN 12 15 17 (9-20) mg/dL Creatinine 0.6 L 0.9 1.2 (0.8-1.5) mg/dL Glucose 82 66 L 99 (75-100) mg/dL Calcium 8.3 L 7.7 L 7.6 L (8.4-10.2) mg/dL Total Bilirubin 4.80 H (0.1-1.2) mg/dL AST 44 H (5-40) units/L ALT 19 (7-56) units/L Alkaline Phosphatase 127 (35-129) units/L Total Protein 7.2 (6.3-8.2) g/dL Albumin 2.6 L (3.9-5) g/dL 01/07/19 01/07/19 01/07/19 Range/Units 08:16 11:49 15:10 Sodium 137 139 136 L (137-145) mmol/L Potassium 4.0 3.6 4.0 (3.6-5.0) mmol/L Chloride 102.2 102.5 101.0 (98-107) mmol/L Carbon Dioxide 10 L 7 L* 8 L* (22-30) mmol/L BUN 18 20 20 (9-20) mg/dL Creatinine 1.2 1.6 H 1.5 (0.8-1.5) mg/dL Glucose 94 124 H 122 H (75-100) mg/dL Calcium 7.8 L 7.6 L 7.1 L (8.4-10.2) mg/dL Total Bilirubin (0.1-1.2) mg/dL AST (5-40) units/L ALT (7-56) units/L Alkaline Phosphatase (35-129) units/L Total Protein (6.3-8.2) g/dL Albumin (3.9-5) g/dL - Imaging CT scan - abdomen: report reviewed, image reviewed CT scan - pelvis: report reviewed, image reviewed Assessment and Plan - Patient Problems (1) Severe sepsis Status: Acute Plan to address problem: Pt in critical condition. Reviewed CT scan and examined the patient. CT shows large amount of free fluid similar to the CT in 2016. Without IV contrast, the scan is of limited value. There are no obvious signs of surgical emergency such as pneumatosis or free air. His exam shows a soft, but distended abdomen that does become firm when he contracts the abdominal wall to breathe. In between breaths, the abdomen is soft. Overall, he shows signs of multisystem organ dysfunction/failure. I can't say for sure that there is not ischemic bowel that is contributing to his critical state. However, resecting any potential ischemic bowel will not change his course. It is unclear if he would tolerate the surgery with his multiple organ dysfunction issues and his coagulopathy. I had an in-depth conversation with the mother. I explained all of these issues. I explained my sense that it most likely will not help to do any surgery. I felt that his prognosis was grave and consideration should be given for comfort care. I suggested that she consider making him DO NOT RESUSCITATE. She was appreciative of the honesty and the time. Updated Dr. Sanches. Please call with questions. time=35min
--- NOTE | 2019-01-07 17:03 | Death Summary ---
Summary - Providers Date of service: 01/07/19 Consults: 01/06/19 18:42 Consult to Physician [CONS] Urgent Comment: Consulting Provider: BUBBA CASTRO Physician Instructions: Reason For Exam: resp failure 01/06/19 23:25 Consult to Dietitian/Nutrition [CONS] Routine Physician Instructions: Reason For Exam: DKA Reason for Consult: Nutrition Recommendations Reason for Consult: Diet education 01/07/19 06:59 Consult to Physician [CONS] Routine Comment: Consulting Provider: STUART MCDONOUGH Physician Instructions: Reason For Exam: CIRRHOSIS 01/07/19 07:15 PICC Line Insertion [Consult to PICC Line RN] [CONS] Routine Reason For Exam: MULITPLE LINES Type Line:: PICC 01/07/19 10:33 Consult to Physician [CONS] Routine Comment: Consulting Provider: ALLISON NORMAN Physician Instructions: Reason For Exam: cocerned about ischemic bowel 01/07/19 14:18 Consult to Physician [CONS] Routine Comment: Consulting Provider: BUBBA CASTAÑEDA Physician Instructions: Reason For Exam: sepsis Attending: REYNA ZALDIVAR MD - summary Date of admission: 01/06/19 20:04 Date of : 01/07/19 Significant findings: 53 YO Male with HCV,Cirrhosis, ESLD complicated by Esophageal Varices, Nicotine Dependence presents to ED for evaluation. Pt states that he has experienced shortness of breath over the past 1 day with persistently worsening symptoms over the same time frame. Pt also acknowledges weakness and fatigue. EMS notified, and upon arrival the patient found to be in distress and transported to [facility]. Pt seen and evaluated in ED and found to have Neutropenia, Sepsis, Pneumonia, and Acute Hypoxemic Respiratory Failure. Pt declines respiratory support. Pt initiated on sepsis protocol and admitted to IMCU. Critical care team consulted in ED. Prior admission on 01/29/16 reviewed. Pt found to have poor prognosis. Advanced care planning conducted. Pt and family acknowledge understanding care plan. * On admission patient received IV abx, cultures drawn, Sepsis protocol initiated. * Patients status was upgraded to ICU due to decompensation * Case was discussed with GI, Surgery, ID * Attempt for thoracentesis was unsuccessful due to the patients coagulopathy * Patients clinical status was discussed with the mother who verbalized understanding and said she knew the time was near and just wanted him to hold on till their material processor arrived. * Intubation was offered, but after discussing the risk family declined. * Culturs grew GN bactermia * Patient unfortunately continued to decompensate and Ultimately at 15:57 with family at Bedside * Family was notified by my colleague who pronounced the patient Septic shock Severe Sepsis Gram negative Bactermia Enteritis Hepatic failure/ESLD Hepatic Encephalopathy SBP presumed Possible underlying Pneumonia Nitropenia Severe Metabolic acidosis Acute Respiratory failure multiorgan failure Coagulopathy inr >2 YANI on CKD Right sided pleural effusion Ascites ETOH induced liver failure Thrombocytopenia Hep C s/p treatment Tobacco use disorder
[2019-01-07] MEDS ORDERED: ROCEPHIN/NS 2 GM/100 ML 2 GM/100 ML BAG IV SCH (22:00)
== END 2019-01-07 15:57 | DRG 871 ==
LOC: ED 17:13 → IMCU 20:04 → CC1 01-07 10:10
PROVIDERS: ADMIT Internal Medicine; ATTEND Internal Medicine
PROC: 4A033R1 Measurement of Arterial Saturation, Peripheral, Percutaneous Approach (ICD-10-PCS; principal; 2019-01-07)
PROC: 5A09357 Assistance with Respiratory Ventilation, Less than 24 Consecutive Hours, Continuous Positive Airway Pressure (ICD-10-PCS; 2019-01-07)
DX: A41.50 Gram-negative sepsis, unspecified (principal); J18.9 Pneumonia, unspecified organism; J96.01 Acute respiratory failure with hypoxia; K65.2 Spontaneous bacterial peritonitis; R65.21 Severe sepsis with septic shock; D70.9 Neutropenia, unspecified; B19.20 Unspecified viral hepatitis C without hepatic coma; M19.90 Unspecified osteoarthritis, unspecified site; F17.200 Nicotine dependence, unspecified, uncomplicated; D68.9 Coagulation defect, unspecified; N17.9 Acute kidney failure, unspecified; N18.9 Chronic kidney disease, unspecified; K70.40 Alcoholic hepatic failure without coma; J90 Pleural effusion, not elsewhere classified; K52.9 Noninfective gastroenteritis and colitis, unspecified; I85.10 Secondary esophageal varices without bleeding; K70.31 Alcoholic cirrhosis of liver with ascites; D69.6 Thrombocytopenia, unspecified
CPT/HCPCS: 36415; 36600; 71045; 74178; 80048; 80053; 82140; 82550; 82803; 82962; 83735; 83880; 84100; 84484; 85007; 85025; 85610; 85670; 85730; 86850; 86900; 86901; 87040; 87076; 87186; 93005; 93010; 94640; 94660; 94760; G0378; J0696; J1815; J1940; J1956; J2060; J2270; J3010; J3430; J3480; J7030; J7040; J7070; Q9967